=== PATIENT | female | born 1935 | race Caucasian/White ===

== ENCOUNTER 2017-07-29 08:31 | Outpatient (CLI) | payer MEDICARE | END 2017-07-29 08:32 | disposition home or self-care (01) | LOC: BICMAMMO 08:31 | PROVIDERS: ATTEND Family Medicine | DX: Z78.0 Asymptomatic menopausal state (principal) | CPT/HCPCS: 77080 ==

== ENCOUNTER 2017-08-19 13:02 | Outpatient (CLI) | payer MEDICARE ==
--- NOTE | 2017-08-19 13:57 | RAD ---
TWO VIEW CHEST: History: Dyspnea. Date: 08-19-17 Comparison: 08-05-16 FINDINGS: Two views of the chest demonstrates calcification over the aorta. The lungs are well aerated. No evid ence of active intrathoracic disease seen. No evidence of effusions, pneumonia, or pneumothorax is se en. IMPRESSION: Normal two views chest. POS: [facility]
== END 2017-08-19 13:03 | disposition home or self-care (01) ==
LOC: RAD 13:02
PROVIDERS: ATTEND Internal Medicine Pulmonary Disease
DX: R06.00 Dyspnea, unspecified (principal)
CPT/HCPCS: 71046

== ENCOUNTER 2017-08-22 10:37 | Emergency (ER) | payer MEDICARE ==
--- NOTE | 2017-08-22 11:41 | RAD ---
LEFT KNEE FOUR VIEWS: HISTORY: Fall five days ago with left knee pain. COMPARISON: None. FINDINGS: Four views of the left knee show no evidence of acute fracture or dislocation. No knee effusion is s een. The patient is status post left knee arthroplasty without perihardware lucency. IMPRESSION: Status post left knee arthroplasty without acute osseous abnormality. POS: [facility]
--- NOTE | 2017-08-22 11:44 | RAD ---
RIGHT KNEE FOUR VIEWS: HISTORY: Fall five days ago with right knee pain. FINDINGS: Four views of the right knee show moderate tricompartmental joint space narrowing and osteophyte form ation, consistent with osteoarthritis. No fracture or dislocation is seen. No knee effusion is seen . IMPRESSION: Moderate right knee osteoarthritis without acute osseous abnormality. POS: [facility]
--- NOTE | 2017-08-22 11:47 | ULT ---
LEFT LOWER EXTREMITY VENOUS ULTRASOUND: History Left leg edema and bruising after a fall on Friday. TECHNIQUE: Multiplanar, ashby scale, and color Doppler images were obtained in a left lower extremity venous ultr asound. Spectral analysis of the Doppler waveforms was performed. FINDINGS: The left common femoral vein, profunda femoral vein, superficial femoral vein, and popliteal vein are normal in appearance without visible thrombus. These vessels demonstrate normal compression, flow, and augmentation. The posterior tibial vein and greater saphenous vein are also patent. IMPRESSION: No evidence of deep vein thrombosis. POS: [facility]
== END 2017-08-22 11:30 | disposition home or self-care (01) ==
LOC: SCSER 10:37
DX: S80.02XA Contusion of left knee, initial encounter (principal); M25.461 Effusion, right knee; I10 Essential (primary) hypertension; I48.91 Unspecified atrial fibrillation; M47.896 Other spondylosis, lumbar region; M19.90 Unspecified osteoarthritis, unspecified site; Z85.038 Personal history of other malignant neoplasm of large intestine; Z79.899 Other long term (current) drug therapy; W19.XXXA Unspecified fall, initial encounter

== ENCOUNTER 2019-03-03 10:12 | Outpatient (CLI) | payer MEDICARE ==
--- NOTE | 2019-03-03 10:31 | RAD ---
Exam: XR Hip Lt 2-3 View HISTORY: Left hip pain for one month. COMPARISON: 11/30/2013 FINDINGS: Again noted is left hip osteoarthritis, but there has been interval increase in joint space narrowing with severe joint space narrowing involving the superolateral aspect of the left hip joint. Subchondral sclerosis and subchondral cystic changes are seen. Prominent osteophytes are identified. No fracture or dislocation is seen involving the left hip. Phleboliths overlie the pelvis. Surgical clips overlie the left iliac bone also present on prior exam. IMPRESSION: Progression in degree of left hip osteoarthritis. There is now severe joint space narrowing involving the left hip with prominent subchondral cystic changes and subchondral sclerosis.
== END 2019-03-03 10:13 | disposition home or self-care (01) ==
LOC: SCSRAD 10:12
PROVIDERS: ATTEND Family Medicine
DX: M25.552 Pain in left hip (principal); M16.12 Unilateral primary osteoarthritis, left hip; M25.852 Other specified joint disorders, left hip

== ENCOUNTER 2019-06-24 13:00 | Inpatient (IN) | payer MEDICARE, OTHER ==
--- NOTE | 2019-10-21 12:50 | HP ---
HISTORY OF PRESENT ILLNESS: The patient is an 84-year-old female with a 6- to 12-month history of progressive problems with her left hip without injury. She has had progressive pain by rest, restriction of activities, use of a walker, and Medrol-Dosepak. The pain is now interfering with day-to-day activities including walking, getting dressed, and sleeping. PAST MEDICAL HISTORY: The patient has history of hypertension, atherosclerotic cardiovascular disease, and paroxysmal atrial fibrillation on Xarelto, she stopped this 3 days prior to surgery. She has been seen and cleared for surgery by Dr. Hicks. CURRENT MEDICATIONS: Include; 1. Multaq. 2. Caltrate. 3. Imdur. 4. Low-dose aspirin. 5. Xarelto, which she has stopped 3 days prior to surgery. 6. Benazepril. 7. Tylenol. 8. Carvedilol. 9. Lasix. 10. Flonase. 11. Synthroid. 12. Potassium. 13. Gabapentin. 14. Simvastatin. ALLERGIES: SHE IS ALLERGIC TO CODEINE, WHICH CAUSES ITCHING. SHE IS ALLERGIC TO STADOL, AMLODIPINE, AND HYDROCHLOROTHIAZIDE. FAMILY HISTORY: Significant that she lives with her , but he has multiple medical problems and will be unable to help take care of her in the immediate postoperative period. She does not have other family members available. She also has significant degenerative arthritis in her right knee, which will limit her postoperative mobility. Otherwise unremarkable. SOCIAL HISTORY: Otherwise unremarkable. REVIEW OF SYSTEMS: Otherwise unremarkable. PHYSICAL EXAMINATION: GENERAL: An elderly heavyset female. She is alert and oriented. HEENT: Unremarkable. NECK: Supple. CHEST: Clear. HEART: Regular rate and rhythm. ABDOMEN: Soft, nontender. PELVIC/RECTAL/BREAST: Deferred. EXTREMITIES: Pertinent findings in the left hip. Her leg lengths were equal. There is tenderness in the anterior hip. There is an antalgic gait. There is decreased range of motion and groin pain with internal rotation. Neurovascular exam appears to be intact. There is good capillary refill. Could not palpate pulses. DIAGNOSTIC STUDIES: X-rays of her left hip reveal severe DJD with minimal joint space remaining with definite progression from previous x-rays. X-rays of her knee reveal left total knee replacement in good position and severe tricompartmental DJD of the right knee. IMPRESSION: 1. Degenerative arthritis, left hip. 2. Degenerative arthritis, right knee. 3. Paroxysmal atrial fibrillation. 4. Hypertension. 5. Atherosclerotic cardiovascular disease. 6. Lack of family support. PLAN: Left total hip replacement. The nature of the surgery, length of recovery, and potential complications such as infection, loss of motion, incomplete relief, neurovascular injury, thromboembolic phenomena, leg-length discrepancy, possible transfusion, need for revision have been discussed in detail. She may need a longer than usual hospitalization because her has multiple medical problems and is unable to care for her after surgery. She may require post-acute placement if she is not able to go home. Job ID: [id number]
[2019-10-21 14:16] LABS: INR-International Normal Ratio 2.3; Prothrombin Time 24.8 sec (12.0-14.7)
[2019-10-21 14:20] LABS: Anion Gap 14 mmol/L (10-20); BUN (Urea Nitrogen) 14 mg/dL (9.8-20.1); Calc. Creatinine Clearance 0 mL/min (70-130); Calcium 10.4 mg/dL (7.8-10.44); Carbon Dioxide 28 mmol/L (23-31); Chloride 106 mmol/L (98-107); Estimated GFR-MDRD 45; Glucose 98 mg/dL (83-110); Potassium 4.5 mmol/L (3.5-5.1); Sodium 143 mmol/L (136-145)
[2019-10-21 14:27] LABS: Bacteria/HPF 1+ HPF (None Seen); Bilirubin Negative (Negative); Blood, Urine Negative (Negative); Clarity Clear (Clear); Glucose, Urine (Dipstick) Normal (Negative); Ketone, Urine Negative (Negative); Leukocyte 25 Leu/uL (Negative); Nitrite Negative (Negative); Protein, Urine (Dipstick) Negative (Neg-Trace); RBC/HPF None Seen HPF (0-3); Specific Gravity, Urine 1.008 (1.002-1.036); Squamous Epithelial 0-3 HPF (0-3); Urobilinogen Normal mg/dL (Less than 2)
[2019-10-21 14:39] LABS: #Eosinphils 0.1 thou/uL (0.0-0.7); #Lymphocytes 1.7 thou/uL (1.20-3.40); #Monocytes 0.6 thou/uL (0.11-0.59); #Neutrophils 3.8 thou/uL (1.40-6.50); %Basophils 0.3 % (0.0-1.0); %Eosinophils 1.6 % (0.0-10.0); %Lymphocytes 26.7 % (21.0-51.0); %Monocytes 9.4 % (0.0-10.0); Hemoglobin 10.4 g/dL (12.0-16.0); Hypochromia SLIGHT = 6-15 cells (100X) (0-5/hpf); MDiff Complete? YES; Mean Corpuscular HGB CONC 30.3 g/dL (32.0-36.0); Mean Corpuscular Hemoglobin 21.1 pg (27.0-31.0); Mean Corpuscular Volume 69.7 fL (78.0-98.0); Mean Platelet Volume 10.5 fL (7.4-10.4); Microcytosis MODERATE=15-30 cells (100X) (0-5/hpf); Ovalocytes SLIGHT = 2-5 cells (100X) (0-1/hpf); Platelet Count 284 thou/uL (130-400); Platelet Morphology Comment Appears Adequate; Polychromasia SLIGHT = 2-3 cells (100X) (0-2/hpf); RBC Distribution Width 15.7 % (11.5-14.5); Target Cells SLIGHT = 2-5 cells (100X) (0-1/hpf); White Blood Cell (WBC) Count 6.2 thou/uL (4.8-10.8)
[2019-10-22 12:46] LABS: SARS-CoV-2 MS2 Positive; SARS-CoV-2 N Gene Negative; SARS-CoV-2 S Gene Negative; SARS-CoV-2 by NAA Not Detected (NotDetected); SARS-CoV-2 orf1ab Negative
[2019-10-25] MEDS ORDERED: Vancomycin 1.5 GRAM/300 ML BAG ONE (07:51)
[2019-10-25] MEDS ORDERED: Sodium Chloride 0.9% 100 ML ONE (07:51)
[2019-10-25] MEDS ORDERED: Tranexamic Acid 1,000 MG/10 ML VIAL ONE ×2 (07:51→11:49)
[2019-10-25] MEDS ORDERED: Fentanyl 100 MCG/2 ML VIAL ONE ×3 (08:15→11:59)
[2019-10-25] MEDS ORDERED: Midazolam HCl 2 mg/2 ml Vial ONE (08:15)
[2019-10-25] MEDS ORDERED: hydrALAZINE 20 MG/ML VIAL ONE (10:32)
[2019-10-25] MEDS ORDERED: Tranexamic Acid 1,000 MG in Sodium Chloride 0.9% 100 ML IVPB SCH ×2 (11:45→13:35)
[2019-10-25] MEDS ORDERED: Ondansetron HCl/PF 4 MG/2 ML Vial IVP PRN (11:59)
[2019-10-25] MEDS ORDERED: Promethazine HCl 25 MG/ML VIAL IM/IV PRN (11:59)
[2019-10-25] MEDS ORDERED: Non-Formulary Medication 1 EACH PO PRN (11:59)
[2019-10-25] MEDS ORDERED: Hydrocerin (Eucerin) Cream 120 gm Jar TOP PRN (12:15)
[2019-10-25] MEDS ORDERED: Naloxone HCl 0.4 mg/ml Vial IVP PRN (12:15)
[2019-10-25] MEDS ORDERED: Ondansetron PF 4 MG/2 ML Vial IVP PRN ×2 (12:15→13:35)
[2019-10-25] MEDS ORDERED: traMADol HCl 50 MG TAB PO PRN ×2 (12:15→13:35)
[2019-10-25] MEDS ORDERED: Bupivacaine 0.25% 10 ML VIAL EPIDURAL PRN (12:15)
[2019-10-25] MEDS ORDERED: Zolpidem Tartrate 5 MG TAB PO PRN ×2 (12:15→13:35)
[2019-10-25] MEDS ORDERED: diphenhydrAMINE 50 MG/ML VIAL IVP PRN (12:15)
[2019-10-25] MEDS ORDERED: Promethazine HCl 25 MG/ML VIAL IM PRN (12:15)
[2019-10-25] MEDS ORDERED: Promethazine HCl 25 MG SUPP PR PRN (12:15)
[2019-10-25] MEDS ORDERED: HYDROcodone/Acetaminophen 5/325 mg Tablet PO PRN (12:15)
[2019-10-25] MEDS ORDERED: Naloxone HCl 0.4 mg/ml Vial IV PRN (12:15)
[2019-10-25] MEDS ORDERED: diphenhydrAMINE 50 MG/ML VIAL IM PRN (12:15)
--- NOTE | 2019-10-25 12:29 | RAD ---
Left hip 2 views intraoperative fluoroscopy HISTORY: Arthritis. FINDINGS: Metallic hip prosthesis is in place without apparent hardware lucency. Alignment is anatomi c. Metallic anchors overlie the greater trochanter. Soft tissue gas from recent surgery. IMPRESSION : Left hip prosthesis is in good radiographic position.
[2019-10-25] MEDS ORDERED: Rocuronium Bromide 10 MG/ML (10ML VIAL) ONE (12:55)
[2019-10-25] MEDS ORDERED: Ketorolac Tromethamine 30 MG/ML VIAL ONE (12:55)
[2019-10-25] MEDS ORDERED: PHENYLEPHRINE-NS 100 MCG/ML 10 ML SYRINGE ONE (12:55)
[2019-10-25] MEDS ORDERED: Glycopyrrolate 0.2 MG/ML 5 ML SYRINGE ONE ×2 (12:55)
[2019-10-25] MEDS ORDERED: PROPOFOL 200 MG/20 ML VIAL ONE (12:55)
[2019-10-25] MEDS ORDERED: Ondansetron PF 4 MG/2 ML Vial ONE (12:55)
[2019-10-25] MEDS ORDERED: Dexamethasone 20 MG/5 ML VIAL ONE (12:55)
[2019-10-25] MEDS ORDERED: EPHEDRINE 25 MG/5 ML SYRINGE ONE (12:55)
[2019-10-25] MEDS ORDERED: Lidocaine 1.5% w/Epi 1:200K 30 ML VIAL (Epid Use) ONE (12:55)
[2019-10-25] MEDS ORDERED: Promethazine HCl 25 MG/ML VIAL SLOW IVP PRN (13:35)
[2019-10-25] MEDS ORDERED: Acetaminophen 325 MG TAB PO PRN (13:35)
[2019-10-25] MEDS ORDERED: diphenhydrAMINE 25 MG CAP PO PRN (13:35)
[2019-10-25] MEDS ORDERED: Fentanyl 100 MCG/2 ML VIAL SLOW IVP PRN ×2 (13:35)
[2019-10-25] MEDS ORDERED: Calcium Carbonate 600 MG + Vit D TAB PO SCH (14:15)
[2019-10-25] MEDS ORDERED: Carvedilol 3.125 MG TAB PO SCH (14:15)
[2019-10-25] MEDS ORDERED: Aspirin Chewable 81 MG TAB PO SCH (14:15)
[2019-10-25] MEDS ORDERED: Lisinopril 20 MG TAB PO SCH (14:30)
[2019-10-25] MEDS ORDERED: Potassium Chloride 20 MEQ TAB PO SCH (14:30)
[2019-10-25] MEDS ORDERED: Furosemide 20 MG TAB PO SCH (14:30)
[2019-10-25] MEDS ORDERED: Hydrochlorothiazide 25 MG TAB PO SCH (14:30)
--- NOTE | 2019-10-25 15:28 | OP ---
DATE OF PROCEDURE: 10/25/2019 CHILDREN'S AUTHOR: LIYAH Kinsey. ANESTHESIA: General plus epidural. PREOPERATIVE DIAGNOSIS: Degenerative arthritis, left hip. POSTOPERATIVE DIAGNOSIS: Degenerative arthritis, left hip. PROCEDURE PERFORMED: Left total hip replacement with uncemented [place] Trident II Tritanium acetabular component 52 mm with X3 polyethylene insert and uncemented [place] Accolade II femoral component size #4, 132-degree neck angle with standard neck length 36 mm metal head. OPERATIVE FINDINGS: There was marked degenerative arthritis of the hip. There was also chronic degenerative tearing of the abductors with virtually so-called bald greater trochanter. DESCRIPTION OF PROCEDURE: After satisfactory anesthesia was induced in supine position, sequential compression device was placed on the nonoperative leg throughout the procedure. The patient was then placed in the lateral decubitus position and this position held with hip positioning device. The patient's left leg and hip were then prepped and draped in routine sterile fashion. Hip was approached through a lateral curvilinear incision centered over the greater trochanter, carried down to subcutaneous tissues and bleeding points were controlled with Bovie cautery. IT band and gluteal fascia were split inline with a skin incision. As mentioned, most of the abductors were pulled off and I completed this and approached the hip through an anterolateral incision detaching the remainder of the abductors, removing the anterior abductors, reflecting this as a single flap anteriorly and medially along with the vastus lateralis. Anterior capsulectomy was performed and the hip dislocated anteriorly. Femoral neck was osteotomized with an oscillating saw using a trial prosthesis as a guide. The acetabulum was exposed and cleaned of all soft tissue and debris and then reamed down to bleeding subchondral bone to a total of 52 mm. It was felt that a Trident II Tritanium outer shell could be placed in a press-fit fashion. The permanent 52 mm outer shell was then hammered in position. There was good fit and stability of the component. The permanent X3 polyethylene insert was then snapped into place and the proximal femur exposed. It was opened with the box osteotome and then rasped in sequence to accept a #4 Accolade II femoral rasp. Trial reduction with 132-degree neck angle trunnion and a standard neck length 36 mm head gave appropriate size, fit, and stability. The hip was again dislocated. The trial components were removed. The wound was copiously irrigated. The permanent #4 Accolade II femoral stem was then hammered in position. There was again good fit and stability of the component. The permanent standard neck length 36 mm metal head was then placed on the trunnion and the hip reduced and found to be stable. The wound was again copiously irrigated. The abductors were repaired with a combination of interrupted #2 Vicryl and two suture anchors placed in the greater trochanter, each double-armed with heavy FiberWire suture. This was further reinforced with some #2 Vicryl, appeared to be acceptable repair. The IT band and gluteal fascia were closed with interrupted #2 Vicryl and running #2 Quill. Subcutaneous tissues were closed with a running 0 Quill suture. The skin closed with running subcuticular 3-0 Monoderm and SurgiSeal skin adhesive. Sterile dressing was applied. The patient turned to supine position and a pillow placed between her legs. Sequential compression device was applied on the operated leg and she was awakened and taken to recovery room in stable condition. There were no apparent intraoperative complications. The estimated blood loss was 400 mL. Job ID: [id number]
[2019-10-25] MEDS: Sodium Chloride 0.9% 1,000 ML IV SCH ×2 (15:40→15:53)
[2019-10-25] MEDS: CEFAZOLIN 2 GM in Premix Bag 1 BAG IVPB SCH ×2 (15:53→23:58)
[2019-10-25] MEDS: Dronedarone HCl 400 MG TAB PO SCH (17:38)
--- NOTE | 2019-10-25 18:34 | CON ---
DATE OF CONSULTATION: PRIMARY CARE PHYSICIAN: Triston Hopkins MD CHIEF COMPLAINT: Schedule left hip replacement. HISTORY OF PRESENT ILLNESS: The patient is an 84-year-old female with a past medical history for coronary artery disease; paroxysmal atrial fibrillation, on Xarelto; hypertension; GERD; and hyperlipidemia, who presents to the hospital for scheduled left hip replacement with Dr. Hopkins. Upon examination, the patient denies any recent fever or chills. She denies any chest pain or heart palpitations. She denies any shortness of breath or cough. Denies any abdominal pain, nausea, vomiting, or diarrhea. She denies any dysuria or urinary frequency. Upon reviewing preop labs, the patient's chem panel was within normal limits and unremarkable. Her CBC shows her to be mildly anemic. Her coags show an INR of 2.3. She has been off her Xarelto 3 days preop. Her UA has leukocyte esterase and bacteria 1+, however, the patient is asymptomatic. The patient was COVID-19 negative. PAST MEDICAL HISTORY: 1. CAD. 2. Hypertension. 3. Paroxysmal atrial fibrillation. 4. GERD. 5. Hyperlipidemia. PAST SURGICAL HISTORY: Left hip replacement. SOCIAL HISTORY: The patient lives at home with family. No history of smoking, illicit drug use, or alcohol intake. FAMILY HISTORY: Noncontributory to this case. REVIEW OF SYSTEMS: All review of systems are negative unless otherwise stated in HPI. PHYSICAL EXAMINATION: VITAL SIGNS: The patient was afebrile. Temperature 98.2, blood pressure 134/77 , heart rate 62, respirations 18, saturations 97% on room air. Pain 3/10, controlled. CONSTITUTIONAL: The patient is alert and oriented to person, place, and time. Appears comfortable, lying in bed. Epidural is in place. HEAD: Atraumatic and normocephalic. EYES: PERRLA. Extraocular muscles intact. ENT: Nares patent bilaterally. Oropharynx is clear. Uvula midline. Moist mucous membranes. No oral lesions. NECK: Full range of motion. No cervical spinous tenderness. No JVD. No cervical adenopathy. RESPIRATORY/CHEST: Respirations even and nonlabored. Clear to auscultation. CARDIOVASCULAR: S1 and S2 appreciated. No murmurs, rubs, or gallops. Regular rate and rhythm. ABDOMEN: Soft, nontender. Hypoactive bowel sounds. No guarding. No rigidity. No rebound. BACK: Full range of motion. No central spinous tenderness. No CVA tenderness. EXTREMITIES: Upper extremities; full range of motion. Normal strength. Sensation intact. Palpable radial pulses. Postop left hip surgery, currently immobilized at this time. Right lower extremity is normal. Normal strength. Sensation intact. Full range of motion. Palpable pedal pulses. No swelling. NEUROLOGIC: The patient is alert and oriented to person, place, and time. Able to follow commands. No new focal deficits. PSYCHIATRIC: Normal affect. A and O x3. LABORATORY DATA AND DIAGNOSTICS: Preop labs; chemistry; sodium 143, potassium 4.5, chloride 106, carbon dioxide 28, BUN 14, creatinine 1.15, glucose 98, calcium 10.4. WBC 6.2, hemoglobin 10.4, hematocrit 34.1, platelets 284. PT 24.8, INR 2.3. UA , 25 leukocyte esterase, 1+ bacteria. COVID negative. IMPRESSION AND PLAN: 1. Hypertension, chronic, stable. We will hold the patient's diuretics for now and YARI inhibitor. We will start beta-oli. We will continue to monitor blood pressure. 2. Paroxysmal atrial fibrillation. The patient is currently in normal sinus rhythm. The patient was on Xarelto preop and held it for 3 days prior. Her INR is supratherapeutic at this time. We will continue to monitor. 3. Coronary artery disease. The patient is on Multaq and Imdur. We will continue those home medications at this time. 4. Acid reflux. We will start the patient on Protonix. 5. Hyperlipidemia. We will restart the patient's statin. 6. Aspirin and Lovenox for deep venous thrombosis prophylaxis per Dr. Hopkins. 7. Protonix for gastrointestinal prophylaxis. PT and OT therapy. Epidural and pain management per Anesthesia. The patient is a full code. 8. Discussed the case with Dr. Tavera. Job ID: [id number] MTDD
[2019-10-25 20:07] VITALS: BMI 39.4
[2019-10-25] MEDS ORDERED: Vancomycin 1.5 GRAM/300 ML BAG 1.5 GM in Premix Bag 1 BAG IVPB SCH (21:00)
[2019-10-25] MEDS: Atorvastatin Calcium 20 MG TAB PO SCH (21:33)
[2019-10-25] MEDS: Carvedilol 3.125 MG TAB PO SCH (21:33)
[2019-10-25] MEDS: Gabapentin 300 MG CAP PO SCH (21:33)
[2019-10-26] MEDS: fentaNYL Citrate/PF 500 MCG, Bupivacaine 10 ML in Sodium Chloride 0.9% 80 ML EPIDURAL SCH ×2 (04:16→20:51)
[2019-10-26 06:00] LABS: Hemoglobin 6.8 g/dL (12.0-16.0); Mean Corpuscular Hemoglobin 20.5 pg (27.0-31.0); Mean Corpuscular Volume 70.6 fL (78.0-98.0); Mean Platelet Volume 10.9 fL (7.4-10.4); Platelet Count 180 thou/uL (130-400); RBC Distribution Width 15.4 % (11.5-14.5); Red Blood Cell (RBC) Count 3.31 mill/uL (4.20-5.40); White Blood Cell (WBC) Count 9.4 thou/uL (4.8-10.8)
[2019-10-26] MEDS: diphenhydrAMINE 25 MG CAP PO PRN ×2 (06:08→10:03)
[2019-10-26 06:15] LABS: Anion Gap 9 mmol/L (10-20); BUN (Urea Nitrogen) 12 mg/dL (9.8-20.1); Calc. Creatinine Clearance 71 mL/min (70-130); Calcium 8.6 mg/dL (7.8-10.44); Carbon Dioxide 24 mmol/L (23-31); Chloride 108 mmol/L (98-107); Estimated GFR-MDRD 55; Glucose 114 mg/dL (83-110); Potassium 4.4 mmol/L (3.5-5.1); Sodium 137 mmol/L (136-145)
[2019-10-26] MEDS: Dronedarone HCl 400 MG TAB PO SCH ×2 (07:53→17:40)
[2019-10-26] MEDS: Calcium Carbonate 600 MG + Vit D TAB PO SCH (07:54)
[2019-10-26] MEDS: Potassium Chloride 20 MEQ TAB PO SCH (07:55)
[2019-10-26] MEDS: Ferrous Gluconate 324 MG TAB PO SCH ×2 (07:56→17:40)
[2019-10-26] MEDS: Senokot S 8.6-50 MG TAB PO SCH ×2 (07:56→20:55)
[2019-10-26] MEDS: Aspirin Chewable 81 MG TAB PO SCH (07:56)
[2019-10-26] MEDS: Carvedilol 3.125 MG TAB PO SCH ×2 (07:57→20:54)
[2019-10-26] MEDS: Multivitamin W/ Minerals 1 TAB PO SCH (07:57)
[2019-10-26] MEDS ORDERED: Hydrochlorothiazide 25 MG TAB PO SCH (09:00)
[2019-10-26] MEDS ORDERED: Enoxaparin Sodium 40 MG/0.4 ML SYRINGE SC SCH (09:00)
[2019-10-26] MEDS ORDERED: Furosemide 20 MG TAB PO SCH (09:00)
[2019-10-26] MEDS ORDERED: Lisinopril 20 MG TAB PO SCH (09:00)
[2019-10-26] MEDS: Sodium Chloride 0.9% 1,000 ML IV SCH ×2 (10:05→19:57)
--- NOTE | 2019-10-26 11:56 | PDOC.HOSPP ---
- Subjective Encounter Date: 10/26/19 Encounter Time: 15:00 Subjective: Patient is an 84-year-old female post-op day 1 for left total hip replacement, examined for medical management. No overnight complications. Patient received 2 units of PRBC this morning. - Objective Vital Signs & Weight: Vital Signs (12 hours) Temp Pulse Resp BP Pulse Ox 10/26/19 08:20 98.4 F 71 14 133/55 L 93 L 10/26/19 03:47 99.6 F 74 16 114/63 97 Weight Weight 223 lb I&O: 10/25/19 10/26/19 10/27/19 06:59 06:59 06:59 Intake Total 3090 Output Total 1150 Balance 1940 Result Diagrams: 10/26/19 13:29 10/26/19 05:31 EKG Reviewed by me: Yes (SR) Hospitalist ROS - Review of Systems Constitutional: denies: fever, chills, sweats, weakness, malaise, other Eyes: denies: pain, vision change, conjunctivae inflammation, eyelid inflammation, redness, other ENT: denies: ear pain, ear discharge, nose pain, nose discharge, nose congestion , mouth pain, mouth swelling, throat pain, throat swelling, other Respiratory: denies: cough, dry, shortness of breath, hemoptysis, SOB with excertion, pleuritic pain, sputum, wheezing, other Cardiovascular: denies: chest pain, palpitations, orthopnea, paroxysmal noc. dyspnea, edema, light headedness, other Gastrointestinal: denies: nausea, vomiting, abdominal pain, diarrhea, constipation, melena, hematochezia, other Genitourinary: denies: dysuria, frequency, incontinence, hematuria, retention, other Musculoskeletal: denies: neck pain, shoulder pain, arm pain, back pain, hand pain, leg pain, foot pain, other Skin: denies: rash, lesions, sandeep, bruising, other Neurological: denies: weakness, numbness, incoordination, change in speech, confusion, seizures, other All other systems reviewed; all pertinent +/- noted in HPI/Subj - Medication Medications: Active Medications Generic Name Dose Route Start Last Admin Trade Name Freq PRN Reason Stop Dose Admin Aspirin 81 mg 10/26/19 09:00 10/26/19 07:56 Aspirin Chewable PO 81 mg DAILY RONAK Administration Atorvastatin Calcium 20 mg 10/25/19 21:00 10/25/19 21:33 Lipitor PO 20 mg HS RONAK Administration Calcium/Vitamin D 1 tab 10/26/19 09:00 10/26/19 07:54 Caltrate 600 + Vit D PO 1 tab DAILY RONAK Administration Carvedilol 3.125 mg 10/25/19 21:00 10/26/19 07:57 Coreg PO 3.125 mg BID RONAK Administration Diphenhydramine HCl 25 mg 10/25/19 12:15 10/26/19 10:03 Benadryl PO 25 mg Q3H PRN Administration Itching Dronedarone 400 mg 10/25/19 17:00 10/26/19 07:53 Multaq PO 400 mg BID-WM RONAK Administration Ferrous Gluconate 324 mg 10/26/19 08:00 10/26/19 07:56 Fergon PO 324 mg BID-WM RONAK Administration Gabapentin 300 mg 10/25/19 21:00 10/25/19 21:33 Neurontin PO 300 mg HS RONAK Administration Fentanyl Citrate 500 mcg/ 100 mls @ 0 mls/hr 10/25/19 12:15 10/26/19 04:16 Bupivacaine HCl 10 ml/ Sodium EPIDURAL 100 mls Chloride INF RONAK Administration As Directed Sodium Chloride 1,000 mls @ 100 mls/hr 10/25/19 13:35 10/26/19 10:05 Normal Saline 0.9% IV Not Given .Q10H RONAK Iron/Minerals/Multivitamins 1 tab 10/26/19 09:00 10/26/19 07:57 Theragran M PO 1 tab DAILY RONAK Administration Isosorbide Mononitrate 60 mg 10/26/19 09:00 10/26/19 07:56 Imdur PO 60 mg QAM RONAK Administration Pantoprazole Sodium 40 mg 10/26/19 09:00 10/26/19 07:57 Protonix PO 40 mg DAILY RONAK Administration Potassium Chloride 20 meq 10/26/19 08:00 10/26/19 07:55 K-Dur PO 20 meq QAM-WM RONAK Administration Senna/Docusate Sodium 2 tab 10/26/19 09:00 10/26/19 07:56 Senokot S PO 2 tab BID RONAK Administration Tramadol HCl 50 mg 10/25/19 12:15 10/26/19 06:08 Ultram PO 50 mg Q6H PRN Administration Mild Pain 1-3 - Exam General Appearance: awake alert Neck: supple, symmetric, no JVD, no carotid bruit Heart: RRR, no murmur, no gallops, no rubs, normal peripheral pulses Respiratory: CTAB, no wheezes, no rales, no ronchi, no tachypnea Gastrointestinal: soft, non-tender, non-distended, normal bowel sounds, no palpable masses, no hepatomegaly, no splenomegaly Extremities: no cyanosis, no clubbing, no edema Skin: normal turgor, no lesions Neurological: no new deficit Psychiatric: normal affect, normal behavior, A&O x 3 Hosp A/P - Plan DVT proph w/SCDs Par Afib Hypomagnesemia Obesity BMI 39.5 HTN CAD HLD GERD CKD 3 PLAN: Cont dronedarone Replace magnesium Cont carvedilol Monitor HH Cont IV fluids Cont PT/OT
[2019-10-26 13:53] LABS: Hemoglobin 7.9 g/dL (12.0-16.0)
[2019-10-26] MEDS: traMADol HCl 50 MG TAB PO PRN (13:58)
[2019-10-26] MEDS ORDERED: Magnesium 2 GM/50 ML 2 GM in Premix Bag 1 BAG IVPB SCH (14:00)
[2019-10-26] MEDS: Atorvastatin Calcium 20 MG TAB PO SCH (20:54)
[2019-10-26] MEDS: Gabapentin 300 MG CAP PO SCH (20:54)
[2019-10-27 05:48] LABS: Hemoglobin 8.6 g/dL (12.0-16.0); Mean Corpuscular HGB CONC 31.1 g/dL (32.0-36.0); Mean Corpuscular Hemoglobin 23.1 pg (27.0-31.0); Mean Corpuscular Volume 74.2 fL (78.0-98.0); Mean Platelet Volume 10.7 fL (7.4-10.4); Platelet Count 159 thou/uL (130-400); Red Blood Cell (RBC) Count 3.72 mill/uL (4.20-5.40); White Blood Cell (WBC) Count 11.4 thou/uL (4.8-10.8)
[2019-10-27] MEDS: Sodium Chloride 0.9% 1,000 ML IV SCH ×2 (06:25→14:58)
[2019-10-27] MEDS: Potassium Chloride 20 MEQ TAB PO SCH (08:17)
[2019-10-27] MEDS: Multivitamin W/ Minerals 1 TAB PO SCH (08:17)
[2019-10-27] MEDS: Dronedarone HCl 400 MG TAB PO SCH ×2 (08:18→17:38)
[2019-10-27] MEDS: Ferrous Gluconate 324 MG TAB PO SCH ×2 (08:18→17:38)
[2019-10-27] MEDS: Carvedilol 3.125 MG TAB PO SCH ×2 (08:18→20:03)
[2019-10-27] MEDS: Aspirin Chewable 81 MG TAB PO SCH (08:18)
[2019-10-27] MEDS: Senokot S 8.6-50 MG TAB PO SCH ×2 (08:18→20:03)
[2019-10-27] MEDS: Calcium Carbonate 600 MG + Vit D TAB PO SCH (08:18)
--- NOTE | 2019-10-27 10:12 | PDOC.HOSPP ---
- Subjective Encounter Date: 10/27/19 Encounter Time: 11:30 Subjective: Patient seen and examined for med mngt. Pain controlled. No CP/SOB/N/V. No new complaints. No overnight events - Objective Vital Signs & Weight: Vital Signs (12 hours) Temp Pulse Resp BP Pulse Ox 10/27/19 08:11 98.9 F 83 18 132/70 98 10/27/19 03:09 100.1 F H 71 16 133/68 96 10/26/19 23:09 100.7 F H 75 16 129/70 95 Weight Admit Weight 223 lb Weight 223 lb I&O: 10/26/19 10/27/19 10/28/19 06:59 06:59 06:59 Intake Total 3090 2220 Output Total 1150 700 Balance 1940 1520 Result Diagrams: 10/27/19 05:22 10/26/19 05:31 Hospitalist ROS - Review of Systems Respiratory: denies: cough, dry, shortness of breath, hemoptysis, SOB with excertion, pleuritic pain, sputum, wheezing, other Cardiovascular: denies: chest pain, palpitations, orthopnea, paroxysmal noc. dyspnea, edema, light headedness, other - Medication Medications: Active Medications Generic Name Dose Route Start Last Admin Trade Name Freq PRN Reason Stop Dose Admin Aspirin 81 mg 10/26/19 09:00 10/27/19 08:18 Aspirin Chewable PO 81 mg DAILY RONAK Administration Atorvastatin Calcium 20 mg 10/25/19 21:00 10/26/19 20:54 Lipitor PO 20 mg HS RONAK Administration Calcium/Vitamin D 1 tab 10/26/19 09:00 10/27/19 08:18 Caltrate 600 + Vit D PO 1 tab DAILY RONAK Administration Carvedilol 3.125 mg 10/25/19 21:00 10/27/19 08:18 Coreg PO 3.125 mg BID RONAK Administration Diphenhydramine HCl 25 mg 10/25/19 12:15 10/26/19 10:03 Benadryl PO 25 mg Q3H PRN Administration Itching Dronedarone 400 mg 10/25/19 17:00 10/27/19 08:18 Multaq PO 400 mg BID-WM RONAK Administration Ferrous Gluconate 324 mg 10/26/19 08:00 10/27/19 08:18 Fergon PO 324 mg BID-WM RONAK Administration Gabapentin 300 mg 10/25/19 21:00 10/26/19 20:54 Neurontin PO 300 mg HS RONAK Administration Fentanyl Citrate 500 mcg/ 100 mls @ 0 mls/hr 10/25/19 12:15 10/26/19 20:51 Bupivacaine HCl 10 ml/ Sodium EPIDURAL 100 mls Chloride INF RONAK Administration As Directed Sodium Chloride 1,000 mls @ 100 mls/hr 10/25/19 13:35 10/27/19 06:25 Normal Saline 0.9% IV Not Given .Q10H RONAK Iron/Minerals/Multivitamins 1 tab 10/26/19 09:00 10/27/19 08:17 Theragran M PO 1 tab DAILY RONAK Administration Isosorbide Mononitrate 60 mg 10/26/19 09:00 10/27/19 08:18 Imdur PO 60 mg QAM RONAK Administration Pantoprazole Sodium 40 mg 10/26/19 09:00 10/27/19 08:17 Protonix PO 40 mg DAILY RONAK Administration Potassium Chloride 20 meq 10/26/19 08:00 10/27/19 08:17 K-Dur PO 20 meq QAM-WM RONAK Administration Senna/Docusate Sodium 2 tab 10/26/19 09:00 10/27/19 08:18 Senokot S PO 2 tab BID RONAK Administration Tramadol HCl 50 mg 10/25/19 12:15 10/26/19 06:08 Ultram PO 50 mg Q6H PRN Administration Mild Pain 1-3 Tramadol HCl 100 mg 10/25/19 12:15 10/26/19 13:58 Ultram PO 100 mg Q6H PRN Administration Moderate Pain 4-6 - Exam General Appearance: NAD Heart: RRR, no gallops Respiratory: no wheezes, no ronchi Gastrointestinal: non-tender, normal bowel sounds Extremities: no cyanosis, no clubbing Neurological: no new deficit Hosp A/P - Plan DVT proph w/SCDs Par Afib - in SR - on Multaq/Coreg - Anticoag on hold due to surgery Obesity BMI 39.5 HTN CAD HLD GERD CKD 3 Hypomagnesemia - replaced PLAN: Cont Dronedarone Cont Carvedilol Cont PT/OT Pain control Cont other meds as above DC planning
[2019-10-27] MEDS: traMADol HCl 50 MG TAB PO PRN (13:30)
[2019-10-27] MEDS: Rivaroxaban 10 MG TAB PO SCH (17:38)
[2019-10-27] MEDS: HYDROcodone/Acetaminophen 5/325 mg Tablet PO PRN (20:03)
[2019-10-27] MEDS: Gabapentin 300 MG CAP PO SCH (20:03)
[2019-10-27] MEDS: Atorvastatin Calcium 20 MG TAB PO SCH (20:03)
[2019-10-27] MEDS ORDERED: Acetaminophen 325 MG TAB PO SCH (22:30)
[2019-10-27 23:10] LABS: #Basophils 0.1 thou/uL (0.0-0.2); #Eosinphils 0.1 thou/uL (0.0-0.7); #Lymphocytes 1.2 thou/uL (1.20-3.40); #Monocytes 1.6 thou/uL (0.11-0.59); #Neutrophils 8.5 thou/uL (1.40-6.50); %Basophils 0.6 % (0.0-1.0); %Eosinophils 0.6 % (0.0-10.0); %Lymphocytes 10.1 % (21.0-51.0); %Neutrophils 74.8 % (42.0-75.0); Hemoglobin 8.5 g/dL (12.0-16.0); Mean Corpuscular HGB CONC 31.3 g/dL (32.0-36.0); Mean Corpuscular Hemoglobin 22.8 pg (27.0-31.0); Mean Platelet Volume 10.9 fL (7.4-10.4); Platelet Count 174 thou/uL (130-400); RBC Distribution Width 17.9 % (11.5-14.5); Red Blood Cell (RBC) Count 3.74 mill/uL (4.20-5.40); White Blood Cell (WBC) Count 11.4 thou/uL (4.8-10.8)
--- NOTE | 2019-10-27 23:15 | RAD ---
EXAM: CHEST ONE VIEW HISTORY: Fever COMPARISON: 01/05/2013 FINDINGS: Cardiac silhouette is magnified by projection but does appear mildly enlarged. Pulmonary vasculature is within normal limits. The lungs are clear. Degenerative changes are again seen in the spine. There is bilateral acromioclavicular joint osteoarthritis. Vascular calcifications are seen in the th oracic aorta. IMPRESSION: 1. No acute cardiopulmonary process. 2. Mild cardiomegaly.
[2019-10-27 23:18] LABS: Lactic Acid 0.7 mmol/L (0.5-2.2)
[2019-10-27 23:23] LABS: ALT (SGPT) Less than 7 U/L (8-55); AST (SGOT) 15 U/L (5-34); Albumin 2.9 g/dL (3.4-4.8); Alkaline Phosphatase 46 U/L (40-110); Anion Gap 8 mmol/L (10-20); BUN (Urea Nitrogen) 16 mg/dL (9.8-20.1); Bilirubin, Total 0.8 mg/dL (0.2-1.2); Calc. Creatinine Clearance 74 mL/min (70-130); Calcium 8.9 mg/dL (7.8-10.44); Carbon Dioxide 25 mmol/L (23-31); Chloride 103 mmol/L (98-107); Estimated GFR-MDRD 58; Globulin 2.3 g/dL (2.4-3.5); Glucose 107 mg/dL (83-110); Potassium 4.9 mmol/L (3.5-5.1); Protein, Total 5.2 g/dL (6.0-8.3); Sodium 131 mmol/L (136-145)
--- NOTE | 2019-10-27 23:58 | PDOC.EVN ---
Event Note - Event Note Event Note: Nurse called, febrile 101.4F, resistant to tylenol. other VSS. Give dose tylenol now. sepsis workup. ABX pending workup results.
[2019-10-28 00:31] LABS: Bacteria/HPF None Seen HPF (None Seen); Bilirubin Negative (Negative); Blood, Urine Negative (Negative); Clarity Clear (Clear); Glucose, Urine (Dipstick) Normal (Negative); Ketone, Urine Negative (Negative); Leukocyte Negative Leu/uL (Negative); Nitrite Negative (Negative); Protein, Urine (Dipstick) Negative (Neg-Trace); RBC/HPF 0-3 HPF (0-3); Specific Gravity, Urine 1.006 (1.002-1.036); Squamous Epithelial 0-3 HPF (0-3); Urobilinogen Normal mg/dL (Less than 2); WBC/HPF 0-3 HPF (0-3)
[2019-10-28] MEDS: Sodium Chloride 0.9% 1,000 ML IV SCH ×2 (00:44→12:53)
[2019-10-28 05:29] LABS: Hemoglobin 7.8 g/dL (12.0-16.0); Mean Corpuscular HGB CONC 30.6 g/dL (32.0-36.0); Mean Corpuscular Hemoglobin 22.5 pg (27.0-31.0); Mean Corpuscular Volume 73.5 fL (78.0-98.0); Mean Platelet Volume 10.9 fL (7.4-10.4); Platelet Count 151 thou/uL (130-400); RBC Distribution Width 17.7 % (11.5-14.5); Red Blood Cell (RBC) Count 3.46 mill/uL (4.20-5.40); White Blood Cell (WBC) Count 9.1 thou/uL (4.8-10.8)
[2019-10-28] MEDS ORDERED: Furosemide 20 MG/2 ML VIAL SLOW IVP SCH (08:30)
[2019-10-28] MEDS: Multivitamin W/ Minerals 1 TAB PO SCH (08:49)
[2019-10-28] MEDS: Potassium Chloride 20 MEQ TAB PO SCH (08:49)
[2019-10-28] MEDS: Carvedilol 3.125 MG TAB PO SCH ×2 (08:50→20:58)
[2019-10-28] MEDS: Ferrous Gluconate 324 MG TAB PO SCH ×2 (08:50→16:55)
[2019-10-28] MEDS: Aspirin Chewable 81 MG TAB PO SCH (08:50)
[2019-10-28] MEDS: Calcium Carbonate 600 MG + Vit D TAB PO SCH (08:50)
[2019-10-28] MEDS: Dronedarone HCl 400 MG TAB PO SCH ×2 (08:50→16:55)
[2019-10-28] MEDS: Senokot S 8.6-50 MG TAB PO SCH ×2 (08:50→20:57)
[2019-10-28] MEDS: traMADol HCl 50 MG TAB PO PRN ×2 (12:49→21:01)
[2019-10-28] MEDS: Acetaminophen 500 MG TAB PO PRN ×2 (12:50→21:05)
--- NOTE | 2019-10-28 15:00 | PQF ---
CLINICAL DOCUMENTATION CLARIFICATION FORM: Dear Obed Robles, NEHA Date: 10/28/2019 Please exercise your independent, professional judgment in responding to the clarification form. Clinical indicators are provided on the bottom of this form for your review Please check appropriate box(es): [ ] Acute blood loss anemia [ x] Post-op anemia related to acute blood loss [ ] Anemia: [ ] Nutritional [ ] Drug induced (specify) [ ] Chronic Anemia: [ ] Other [ ] Anemia of Chronic Disease (please specify ) [ ] Other diagnosis [ ] Unable to determine In addition, please specify: Present on Admission (POA): [ ] Yes [ x ] No [ ] Unable to determine For continuity of documentation, please document condition throughout progress notes and discharge summary. Thank You. To be completed by CDI/Coding staff for physician review: CLINICAL INDICATORS - SIGNS / SYMPTOMS / LABS / RESULTS AND LOCATION IN EMR 10/24 (Margaret) Hx of present illness: Her CBC shows her to be mildly anemic. Her coags show an INR of 2.3. LAB: Hgb 10.4 Hct 34.1 10/20 10/25 @0531 10/25 @1329 10/27 LABS: Hemoglobin 10.4 6.8 7.9 7.8 Hematocrit 34.1 23.4 25.2 25.5 RISK FACTORS / RESULTS AND LOCATION IN EMR H&P 10/20 (Sandeep) hx of HTN, PAF on Xarelto, she stopped this 3 days prior to surgery. Degenerative arthritis, left hip. Degenerative arthritis , r knee. Operative note 10/24: Left total hip replacement. TREATMENTS / RESULTS AND LOCATION IN EMR 10/25 (Ian) Subjective: Pt received 2 units of PRBC this morning. Thank you, Kaelyn Gonzalez RN, BSN [email or web address] This is a permanent part of the Medical Record [facility]
[2019-10-28] MEDS: Rivaroxaban 10 MG TAB PO SCH (16:55)
--- NOTE | 2019-10-28 17:47 | PDOC.HOSPP ---
- Subjective Encounter Date: 10/28/19 Encounter Time: 12:30 Subjective: Patient seen and examined for med mngt. No CP or SOB. Receiving PRBC. No new complaints. No overnight events - Objective Vital Signs & Weight: Vital Signs (12 hours) Temp Pulse Pulse Resp BP BP Pulse Ox 10/28/19 16:00 96 10/28/19 14:50 98.5 F 71 16 119/53 L 93 L 10/28/19 14:35 99.5 F 73 18 139/72 95 10/28/19 12:00 94 L 10/28/19 10:50 98.2 F 73 18 137/63 94 L 10/28/19 08:00 94 L 10/28/19 07:57 97.7 F 65 12 140/76 94 L Weight Admit Weight 223 lb Weight 223 lb I&O: 10/27/19 10/28/19 10/29/19 06:59 06:59 06:59 Intake Total 2220 1200 0 Output Total 700 1800 Balance 1520 -600 0 Result Diagrams: 10/28/19 05:11 10/27/19 22:50 Hospitalist ROS - Review of Systems Respiratory: denies: cough, dry, shortness of breath, hemoptysis, SOB with excertion, pleuritic pain, sputum, wheezing, other Cardiovascular: denies: chest pain, palpitations, orthopnea, paroxysmal noc. dyspnea, edema, light headedness, other - Medication Medications: Active Medications Generic Name Dose Route Start Last Admin Trade Name Freq PRN Reason Stop Dose Admin Acetaminophen 1,000 mg 10/25/19 12:10 10/28/19 12:50 Tylenol PO 1,000 mg Q6H PRN Administration Headache/Fever or Pain Hydrocodone Bitart/Acetaminophen 2 tab 10/25/19 12:15 10/27/19 20:03 [place] 5/325 PO 2 tab Q4H PRN Administration For Moderate Pain 4-6 Aspirin 81 mg 10/26/19 09:00 10/28/19 08:50 Aspirin Chewable PO 81 mg DAILY RONAK Administration Atorvastatin Calcium 20 mg 10/25/19 21:00 10/27/19 20:03 Lipitor PO 20 mg HS RONAK Administration Calcium/Vitamin D 1 tab 10/26/19 09:00 10/28/19 08:50 Caltrate 600 + Vit D PO 1 tab DAILY RONAK Administration Carvedilol 3.125 mg 10/25/19 21:00 10/28/19 08:50 Coreg PO 3.125 mg BID RONAK Administration Diphenhydramine HCl 25 mg 10/25/19 12:15 10/26/19 10:03 Benadryl PO 25 mg Q3H PRN Administration Itching Dronedarone 400 mg 10/25/19 17:00 10/28/19 16:55 Multaq PO 400 mg BID-WM RONAK Administration Ferrous Gluconate 324 mg 10/26/19 08:00 10/28/19 16:55 Fergon PO 324 mg BID-WM RONAK Administration Gabapentin 300 mg 10/25/19 21:00 10/27/19 20:03 Neurontin PO 300 mg HS RONAK Administration Sodium Chloride 1,000 mls @ 100 mls/hr 10/25/19 13:35 10/28/19 12:53 Normal Saline 0.9% IV Not Given .Q10H RONAK Iron/Minerals/Multivitamins 1 tab 10/26/19 09:00 10/28/19 08:49 Theragran M PO 1 tab DAILY RONAK Administration Isosorbide Mononitrate 60 mg 10/26/19 09:00 10/28/19 08:50 Imdur PO 60 mg QAM RONAK Administration Pantoprazole Sodium 40 mg 10/26/19 09:00 10/28/19 08:50 Protonix PO 40 mg DAILY RONAK Administration Potassium Chloride 20 meq 10/26/19 08:00 10/28/19 08:49 K-Dur PO 20 meq QAM-WM RONAK Administration Rivaroxaban 10 mg 10/27/19 17:00 10/28/19 16:55 Xarelto PO 10 mg 1700 RONAK Administration Senna/Docusate Sodium 2 tab 10/26/19 09:00 10/28/19 08:50 Senokot S PO 2 tab BID RONAK Administration Tramadol HCl 50 mg 10/25/19 12:15 10/26/19 06:08 Ultram PO 50 mg Q6H PRN Administration Mild Pain 1-3 Tramadol HCl 100 mg 10/25/19 12:15 10/28/19 12:49 Ultram PO 100 mg Q6H PRN Administration Moderate Pain 4-6 - Exam General Appearance: NAD Heart: RRR, no gallops Respiratory: no wheezes, no ronchi Gastrointestinal: soft, non-tender, normal bowel sounds Extremities: no cyanosis Neurological: no new deficit Hosp A/P - Plan DVT proph w/SCDs Par Afib - on Multaq/Coreg - Anticoag on hold Obesity BMI 39.5 HTN CAD HLD GERD CKD 3 Hypomagnesemia PLAN: Hold Potassium Cont Dronedarone/Carvedilol and other meds as above Cont PT/OT Pain control DC planning
[2019-10-28] MEDS: Gabapentin 300 MG CAP PO SCH (20:57)
[2019-10-28] MEDS: Atorvastatin Calcium 20 MG TAB PO SCH (20:57)
[2019-10-29 05:08] LABS: Hemoglobin 9.6 g/dL (12.0-16.0); Mean Corpuscular HGB CONC 31.8 g/dL (32.0-36.0); Mean Corpuscular Hemoglobin 24.6 pg (27.0-31.0); Mean Corpuscular Volume 77.3 fL (78.0-98.0); Mean Platelet Volume 10.6 fL (7.4-10.4); Platelet Count 177 thou/uL (130-400); RBC Distribution Width 18.4 % (11.5-14.5); Red Blood Cell (RBC) Count 3.89 mill/uL (4.20-5.40); White Blood Cell (WBC) Count 8.9 thou/uL (4.8-10.8)
[2019-10-29] MEDS: Acetaminophen 500 MG TAB PO PRN (06:39)
[2019-10-29] MEDS: traMADol HCl 50 MG TAB PO PRN (06:40)
[2019-10-29] MEDS: Ferrous Gluconate 324 MG TAB PO SCH ×2 (08:31→17:32)
[2019-10-29] MEDS: Dronedarone HCl 400 MG TAB PO SCH ×2 (08:31→17:32)
[2019-10-29] MEDS: Senokot S 8.6-50 MG TAB PO SCH ×2 (08:31→20:44)
[2019-10-29] MEDS: Multivitamin W/ Minerals 1 TAB PO SCH (08:32)
[2019-10-29] MEDS: Calcium Carbonate 600 MG + Vit D TAB PO SCH (08:32)
[2019-10-29] MEDS: Aspirin Chewable 81 MG TAB PO SCH (08:32)
[2019-10-29] MEDS: Carvedilol 3.125 MG TAB PO SCH ×2 (08:32→20:44)
[2019-10-29] MEDS ORDERED: Rivaroxaban 10 MG TAB PO SCH (12:02)
--- NOTE | 2019-10-29 17:13 | PDOC.HOSPP ---
- Subjective Encounter Date: 10/29/19 Encounter Time: 10:00 Subjective: Patient seen and examined for med mngt. . No CP/SOB or bleeding. Pain controlled. Rodriguez dced. No new complaints. No overnight events - Objective Vital Signs & Weight: Vital Signs (12 hours) Temp Pulse Resp BP Pulse Ox 10/29/19 16:12 98.1 F 71 16 181/74 H 94 L 10/29/19 11:00 97.9 F 66 16 156/76 H 95 10/29/19 08:00 94 L 10/29/19 07:40 98.1 F 66 14 149/80 H 94 L Weight Admit Weight 223 lb Weight 223 lb I&O: 10/28/19 10/29/19 10/30/19 06:59 06:59 06:59 Intake Total 1200 2790 Output Total 1800 Balance -600 2790 Result Diagrams: 10/29/19 04:44 10/27/19 22:50 Hospitalist ROS - Review of Systems Respiratory: denies: cough, dry, shortness of breath, hemoptysis, SOB with excertion, pleuritic pain, sputum, wheezing, other Cardiovascular: denies: chest pain, palpitations, orthopnea, paroxysmal noc. dyspnea, edema, light headedness, other - Medication Medications: Active Medications Generic Name Dose Route Start Last Admin Trade Name Freq PRN Reason Stop Dose Admin Acetaminophen 1,000 mg 10/25/19 12:10 10/29/19 06:39 Tylenol PO 1,000 mg Q6H PRN Administration Headache/Fever or Pain Hydrocodone Bitart/Acetaminophen 2 tab 10/25/19 12:15 10/27/19 20:03 [place] 5/325 PO 2 tab Q4H PRN Administration For Moderate Pain 4-6 Aspirin 81 mg 10/26/19 09:00 10/29/19 08:32 Aspirin Chewable PO 81 mg DAILY RONAK Administration Atorvastatin Calcium 20 mg 10/25/19 21:00 10/28/19 20:57 Lipitor PO 20 mg HS RONAK Administration Calcium/Vitamin D 1 tab 10/26/19 09:00 10/29/19 08:32 Caltrate 600 + Vit D PO 1 tab DAILY RONAK Administration Carvedilol 3.125 mg 10/25/19 21:00 10/29/19 08:32 Coreg PO 3.125 mg BID RONAK Administration Diphenhydramine HCl 25 mg 10/25/19 12:15 10/26/19 10:03 Benadryl PO 25 mg Q3H PRN Administration Itching Dronedarone 400 mg 10/25/19 17:00 10/29/19 08:31 Multaq PO 400 mg BID-WM RONAK Administration Ferrous Gluconate 324 mg 10/26/19 08:00 10/29/19 08:31 Fergon PO 324 mg BID-WM RONAK Administration Gabapentin 300 mg 10/25/19 21:00 10/28/19 20:57 Neurontin PO 300 mg HS RONAK Administration Iron/Minerals/Multivitamins 1 tab 10/26/19 09:00 10/29/19 08:32 Theragran M PO 1 tab DAILY RONAK Administration Isosorbide Mononitrate 60 mg 10/26/19 09:00 10/29/19 08:32 Imdur PO 60 mg QAM RONAK Administration Pantoprazole Sodium 40 mg 10/26/19 09:00 10/29/19 08:32 Protonix PO 40 mg DAILY RONAK Administration Potassium Chloride 20 meq 10/26/19 08:00 10/28/19 08:49 K-Dur PO 20 meq QAM-WM RONAK Administration Senna/Docusate Sodium 2 tab 10/26/19 09:00 10/29/19 08:31 Senokot S PO 2 tab BID RONAK Administration Tramadol HCl 50 mg 10/25/19 12:15 10/26/19 06:08 Ultram PO 50 mg Q6H PRN Administration Mild Pain 1-3 Tramadol HCl 100 mg 10/25/19 12:15 10/29/19 06:40 Ultram PO 100 mg Q6H PRN Administration Moderate Pain 4-6 - Exam General Appearance: NAD Neck: supple, no JVD Heart: no gallops, no rubs Respiratory: CTAB, no rales Gastrointestinal: non-tender, normal bowel sounds Extremities: no cyanosis Hosp A/P - Plan Par Afib - on Multaq/Coreg - on Xarelto Obesity BMI 39.5 HTN CAD HLD GERD CKD 3 Hypomagnesemia - replaced PLAN: Cont Dronedarone Cont Carvedilol Cont PT/OT DC planning to Inpt Rehab when approved Cont other meds as above BMP after 1 week
[2019-10-29] MEDS: HYDROcodone/Acetaminophen 5/325 mg Tablet PO PRN (20:43)
[2019-10-29] MEDS: Atorvastatin Calcium 20 MG TAB PO SCH (20:44)
[2019-10-29] MEDS: Gabapentin 300 MG CAP PO SCH (20:44)
[2019-10-30] MEDS ORDERED: Labetalol HCl 100 MG/20 ML VIAL SLOW IVP PRN (07:42)
[2019-10-30] MEDS ORDERED: cloNIDine 0.1 MG TAB PO PRN (07:42)
--- NOTE | 2019-10-30 07:47 | PDOC.HOSPP ---
- Subjective Encounter Date: 10/30/19 Encounter Time: 13:00 Subjective: Patient seen and examined for med mngt. Had some delirium from norco last night. No new complaints. No overnight events - Objective Vital Signs & Weight: Vital Signs (12 hours) Temp Pulse Resp BP Pulse Ox 10/30/19 07:14 99.7 F H 80 16 182/80 H 95 10/30/19 03:19 99.4 F 78 16 133/60 93 L 10/29/19 23:23 99.2 F 81 16 147/66 H 92 L 10/29/19 20:00 94 L 10/29/19 19:47 99 F 81 16 150/62 H 94 L Weight Admit Weight 223 lb Weight 223 lb I&O: 10/29/19 10/30/19 10/31/19 06:59 06:59 06:59 Intake Total 2790 1950 Balance 2790 1950 Result Diagrams: 10/29/19 04:44 10/27/19 22:50 Hospitalist ROS - Review of Systems Respiratory: denies: cough, dry, shortness of breath, hemoptysis, SOB with excertion, pleuritic pain, sputum, wheezing, other Cardiovascular: denies: chest pain, palpitations, orthopnea, paroxysmal noc. dyspnea, edema, light headedness, other - Medication Medications: Active Medications Generic Name Dose Route Start Last Admin Trade Name Freq PRN Reason Stop Dose Admin Acetaminophen 1,000 mg 10/25/19 12:10 10/29/19 06:39 Tylenol PO 1,000 mg Q6H PRN Administration Headache/Fever or Pain Hydrocodone Bitart/Acetaminophen 2 tab 10/25/19 12:15 10/29/19 20:43 [place] 5/325 PO 2 tab Q4H PRN Administration For Moderate Pain 4-6 Aspirin 81 mg 10/26/19 09:00 10/29/19 08:32 Aspirin Chewable PO 81 mg DAILY RONAK Administration Atorvastatin Calcium 20 mg 10/25/19 21:00 10/29/19 20:44 Lipitor PO 20 mg HS RONAK Administration Calcium/Vitamin D 1 tab 10/26/19 09:00 10/29/19 08:32 Caltrate 600 + Vit D PO 1 tab DAILY RONAK Administration Carvedilol 3.125 mg 10/25/19 21:00 10/29/19 20:44 Coreg PO 3.125 mg BID RONAK Administration Diphenhydramine HCl 25 mg 10/25/19 12:15 10/26/19 10:03 Benadryl PO 25 mg Q3H PRN Administration Itching Dronedarone 400 mg 10/25/19 17:00 10/29/19 17:32 Multaq PO 400 mg BID-WM RONAK Administration Ferrous Gluconate 324 mg 10/26/19 08:00 10/29/19 17:32 Fergon PO 324 mg BID-WM RONAK Administration Gabapentin 300 mg 10/25/19 21:00 10/29/19 20:44 Neurontin PO 300 mg HS RONAK Administration Iron/Minerals/Multivitamins 1 tab 10/26/19 09:00 10/29/19 08:32 Theragran M PO 1 tab DAILY RONAK Administration Isosorbide Mononitrate 60 mg 10/26/19 09:00 10/29/19 08:32 Imdur PO 60 mg QAM RONAK Administration Pantoprazole Sodium 40 mg 10/26/19 09:00 10/29/19 08:32 Protonix PO 40 mg DAILY RONAK Administration Potassium Chloride 20 meq 10/26/19 08:00 10/28/19 08:49 K-Dur PO 20 meq QAM-WM RONAK Administration Senna/Docusate Sodium 2 tab 10/26/19 09:00 10/29/19 20:44 Senokot S PO 2 tab BID RONAK Administration Tramadol HCl 50 mg 10/25/19 12:15 10/26/19 06:08 Ultram PO 50 mg Q6H PRN Administration Mild Pain 1-3 Tramadol HCl 100 mg 10/25/19 12:15 10/29/19 06:40 Ultram PO 100 mg Q6H PRN Administration Moderate Pain 4-6 - Exam General Appearance: NAD Neck: supple, no JVD Heart: no gallops, no rubs Respiratory: no wheezes, no ronchi Gastrointestinal: non-tender, normal bowel sounds Extremities: no cyanosis, no clubbing Hosp A/P - Plan DVT proph w/SCDs Par Afib - on Multaq/Coreg - on Xarelto Obesity BMI 39.5 HTN CAD HLD GERD CKD 3 Hypomagnesemia - replaced PLAN: Cont Dronedarone/Carvedilol Xarelto started Rudolph dced DC planning to Inpt Rehab when approved Cont other meds as above CBC/BMP after 1 week Cont PT/OT
[2019-10-30] MEDS: Senokot S 8.6-50 MG TAB PO SCH ×3 (08:33→20:00)
[2019-10-30] MEDS: Ferrous Gluconate 324 MG TAB PO SCH ×2 (08:34→17:20)
[2019-10-30] MEDS: Carvedilol 3.125 MG TAB PO SCH ×2 (08:34→19:58)
[2019-10-30] MEDS: Calcium Carbonate 600 MG + Vit D TAB PO SCH (08:34)
[2019-10-30] MEDS: Aspirin Chewable 81 MG TAB PO SCH (08:34)
[2019-10-30] MEDS: Multivitamin W/ Minerals 1 TAB PO SCH (08:34)
[2019-10-30] MEDS: Dronedarone HCl 400 MG TAB PO SCH ×2 (08:34→17:20)
[2019-10-30] MEDS: traMADol HCl 50 MG TAB PO PRN ×2 (10:02→19:58)
[2019-10-30] MEDS: Rivaroxaban 10 MG TAB PO SCH (17:20)
[2019-10-30] MEDS: Gabapentin 300 MG CAP PO SCH (19:58)
[2019-10-30] MEDS: Atorvastatin Calcium 20 MG TAB PO SCH (19:58)
[2019-10-31] MEDS: Aspirin Chewable 81 MG TAB PO SCH (08:51)
[2019-10-31] MEDS: Calcium Carbonate 600 MG + Vit D TAB PO SCH (08:51)
[2019-10-31] MEDS: Dronedarone HCl 400 MG TAB PO SCH ×2 (08:51→19:48)
[2019-10-31] MEDS: Multivitamin W/ Minerals 1 TAB PO SCH (08:51)
[2019-10-31] MEDS: Senokot S 8.6-50 MG TAB PO SCH (08:51)
[2019-10-31] MEDS: Carvedilol 3.125 MG TAB PO SCH ×2 (08:51→20:35)
[2019-10-31] MEDS: Ferrous Gluconate 324 MG TAB PO SCH ×2 (08:51→19:52)
--- NOTE | 2019-10-31 10:50 | PDOC.HOSPP ---
- Subjective Encounter Date: 10/31/19 Encounter Time: 11:30 Subjective: Patient seen and examined for med mngt. Pain controlled. No CP/SOB or palpitations. No new complaints. No overnight events - Objective Vital Signs & Weight: Vital Signs (12 hours) Temp Pulse Resp BP Pulse Ox 10/31/19 07:25 98.4 F 71 16 130/71 95 10/31/19 03:20 99 F 74 16 152/63 H 94 L 10/30/19 23:24 98 F 76 16 137/64 96 Weight Admit Weight 223 lb Weight 223 lb I&O: 10/30/19 10/31/19 11/01/19 06:59 06:59 06:59 Intake Total 1950 500 Balance 1950 500 Result Diagrams: 10/29/19 04:44 10/31/19 11:39 Hospitalist ROS - Review of Systems Respiratory: denies: cough, dry, shortness of breath, hemoptysis, SOB with excertion, pleuritic pain, sputum, wheezing, other Cardiovascular: denies: chest pain, palpitations, orthopnea, paroxysmal noc. dyspnea, edema, light headedness, other - Medication Medications: Active Medications Generic Name Dose Route Start Last Admin Trade Name Freq PRN Reason Stop Dose Admin Acetaminophen 1,000 mg 10/25/19 12:10 10/29/19 06:39 Tylenol PO 1,000 mg Q6H PRN Administration Headache/Fever or Pain Aspirin 81 mg 10/26/19 09:00 10/31/19 08:51 Aspirin Chewable PO 81 mg DAILY RONAK Administration Atorvastatin Calcium 20 mg 10/25/19 21:00 10/30/19 19:58 Lipitor PO 20 mg HS RONAK Administration Calcium/Vitamin D 1 tab 10/26/19 09:00 10/31/19 08:51 Caltrate 600 + Vit D PO 1 tab DAILY RONAK Administration Carvedilol 3.125 mg 10/25/19 21:00 10/31/19 08:51 Coreg PO 3.125 mg BID RONAK Administration Clonidine 0.1 mg 10/30/19 07:42 10/30/19 08:35 Catapres PO 0.1 mg Q4H PRN Administration SBP Greater Than 180 Diphenhydramine HCl 25 mg 10/25/19 12:15 10/26/19 10:03 Benadryl PO 25 mg Q3H PRN Administration Itching Dronedarone 400 mg 10/25/19 17:00 10/31/19 08:51 Multaq PO 400 mg BID-WM RONAK Administration Ferrous Gluconate 324 mg 10/26/19 08:00 10/31/19 08:51 Fergon PO 324 mg BID-WM RONAK Administration Gabapentin 300 mg 10/25/19 21:00 10/30/19 19:58 Neurontin PO 300 mg HS RONAK Administration Iron/Minerals/Multivitamins 1 tab 10/26/19 09:00 10/31/19 08:51 Theragran M PO 1 tab DAILY RONAK Administration Isosorbide Mononitrate 60 mg 10/26/19 09:00 10/31/19 08:51 Imdur PO 60 mg QAM RONAK Administration Pantoprazole Sodium 40 mg 10/26/19 09:00 10/31/19 08:51 Protonix PO 40 mg DAILY RONAK Administration Potassium Chloride 20 meq 10/26/19 08:00 10/28/19 08:49 K-Dur PO 20 meq QAM-WM RONAK Administration Rivaroxaban 20 mg 10/30/19 18:00 10/30/19 17:20 Xarelto PO 20 mg 1800 RONAK Administration Senna/Docusate Sodium 2 tab 10/26/19 09:00 10/31/19 08:51 Senokot S PO 2 tab BID RONAK Administration Tramadol HCl 50 mg 10/25/19 12:15 10/26/19 06:08 Ultram PO 50 mg Q6H PRN Administration Mild Pain 1-3 Tramadol HCl 100 mg 10/25/19 12:15 10/30/19 19:58 Ultram PO 100 mg Q6H PRN Administration Moderate Pain 4-6 - Exam General Appearance: NAD Heart: RRR, no gallops Respiratory: no wheezes, no ronchi Gastrointestinal: non-tender, normal bowel sounds Extremities: no cyanosis Hosp A/P - Plan PT/OT Par Afib - on Multaq/Coreg - on Xarelto Obesity BMI 39.5 HTN CAD HLD GERD CKD 3 Hypomagnesemia Hyponatremia PLAN: Replace Magnesium Resume Potassium supp at dc Cont Dronedarone Cont Carvedilol On Anticoagulation DC planning to Inpt Rehab when accepted Cont other meds as above BMP after 1 week
[2019-10-31 12:25] LABS: Anion Gap 8 mmol/L (10-20); BUN (Urea Nitrogen) 11 mg/dL (9.8-20.1); Calc. Creatinine Clearance 92 mL/min (70-130); Calcium 9.2 mg/dL (7.8-10.44); Carbon Dioxide 29 mmol/L (23-31); Chloride 103 mmol/L (98-107); Estimated GFR-MDRD 74; Glucose 124 mg/dL (83-110); Magnesium 1.8 mg/dL (1.6-2.6); Potassium 4.4 mmol/L (3.5-5.1); Sodium 136 mmol/L (136-145)
[2019-10-31] MEDS ORDERED: Magnesium 2 GM/50 ML 2 GM in Premix Bag 1 BAG IVPB SCH (13:15)
[2019-10-31] MEDS: Rivaroxaban 10 MG TAB PO SCH (19:52)
[2019-10-31] MEDS: traMADol HCl 50 MG TAB PO PRN (20:33)
[2019-10-31] MEDS: Atorvastatin Calcium 20 MG TAB PO SCH (20:35)
[2019-10-31] MEDS: Gabapentin 300 MG CAP PO SCH (20:36)
[2019-10-31] MEDS: Magnesium Chloride 64 MG TAB PO SCH (20:59)
[2019-11-01] MEDS: Senokot S 8.6-50 MG TAB PO SCH ×3 (00:42→20:53)
[2019-11-01] MEDS: Carvedilol 3.125 MG TAB PO SCH ×2 (08:37→20:51)
[2019-11-01] MEDS: Aspirin Chewable 81 MG TAB PO SCH (08:37)
[2019-11-01] MEDS: Ferrous Gluconate 324 MG TAB PO SCH ×2 (08:37→17:21)
[2019-11-01] MEDS: Dronedarone HCl 400 MG TAB PO SCH ×2 (08:37→17:21)
[2019-11-01] MEDS: Magnesium Chloride 64 MG TAB PO SCH ×2 (08:37→20:51)
[2019-11-01] MEDS: Multivitamin W/ Minerals 1 TAB PO SCH (08:37)
[2019-11-01] MEDS: Calcium Carbonate 600 MG + Vit D TAB PO SCH (08:37)
[2019-11-01] MEDS: traMADol HCl 50 MG TAB PO PRN ×2 (12:07→20:52)
--- NOTE | 2019-11-01 12:20 | PRG ---
DATE OF SERVICE: 11/01/2019 SUBJECTIVE: The patient is doing well. She is day #7 in the hospital for her left hip replacement, the patient of Dr. Hopkins, and she is progressing. She is unable to go home. Her has some medical issues. Her family works. Therefore, as we talk, she needs to go to either rehab or nursing home facility. P.o. intake good. Mood is good and she feels she has been treated well. Spirits are high. OBJECTIVE: VITAL SIGNS: Stable, afebrile. GENERAL: Speech clear. Affect pleasant. Answers questions appropriately. She is alert and oriented x3. MUSCULOSKELETAL: Incision of left hip is a good-looking. Dressing clean, dry, intact. She is moving that left lower extremity fair, still struggling with some pain and fatigues quickly. Sensation is good. ASSESSMENT: Stable. PLAN: We will continue with current treatment regime. We will await Case Management getting her placement. Her questions and concerns have been addressed today. Job ID: [id number]
[2019-11-01] MEDS: Rivaroxaban 10 MG TAB PO SCH (17:21)
[2019-11-01] MEDS: Gabapentin 300 MG CAP PO SCH (20:51)
[2019-11-01] MEDS: Atorvastatin Calcium 20 MG TAB PO SCH (20:51)
[2019-11-01] MEDS: diphenhydrAMINE 25 MG CAP PO PRN (22:48)
[2019-11-02] MEDS: Magnesium Chloride 64 MG TAB PO SCH (08:18)
[2019-11-02] MEDS: Ferrous Gluconate 324 MG TAB PO SCH (08:18)
[2019-11-02] MEDS: Multivitamin W/ Minerals 1 TAB PO SCH (08:18)
[2019-11-02] MEDS: Aspirin Chewable 81 MG TAB PO SCH (08:19)
[2019-11-02] MEDS: Dronedarone HCl 400 MG TAB PO SCH (08:19)
[2019-11-02] MEDS: Carvedilol 3.125 MG TAB PO SCH (08:19)
[2019-11-02] MEDS: Senokot S 8.6-50 MG TAB PO SCH (08:19)
[2019-11-02] MEDS: Calcium Carbonate 600 MG + Vit D TAB PO SCH (08:19)
[2019-11-02] MEDS: traMADol HCl 50 MG TAB PO PRN (09:23)
[2019-11-02 11:16] VITALS: BP 155/71; TEMP 98.2
--- NOTE | 2019-11-03 12:34 | PQF ---
CLINICAL DOCUMENTATION CLARIFICATION FORM: Dear : Collin Sosa Date / Time: 11/03/2019 Please exercise your independent, professional judgment in responding to the clarification form. Clinical indicators are provided on the bottom of this form for your review Please check appropriate box(es): [ ] Sepsis [ x ] No sepsis [x ] Other diagnosis Post op fever - prob due to Atelectasis [ ] Unable to determine In addition, please specify: Present on Admission (POA): [ ] Yes [ ] No [ ] Unable to determine To be completed by CDI/Coding staff for physician review: Present Clinical Indicators - Signs / Symptoms / Labs Results and Location in Medical Record [ x ] Nurse called, febrile 101.4F, resistant to Tylenol. Give dose Tylenol now. Sepsis workup. ABX pending workup results Event note 10/26 by Obed Robles [ x ] WBC is 11.4 on 10/26 Laboratory [ x ] Temp is 100.7 F on 10/25 and 103.2 F on 10/26 Vital signs Present Risk Factors Results and Location in Medical Record [ x ] Total hip replacement surgery OP report 10/24 by Triston Hopkins MD [ x ] Patient is 84 years old Consult 10/24 by Obed Robles Present Treatments Results and Location in Medical Record [ x ] Sepsis work up initiated Event note 10/26 by Obed Robles [ x ] IV fluids 10/25-11/01 Medications [employer] Driver Signature: [email or web address] Phone #: Date/Time: 11/03/2019 This is a permanent part of the Medical Record [facility]
== END 2019-11-02 11:45 | DRG 470 ==
LOC: SURG A 10-25 06:51 → EDSTATUS 10-25 13:00 → SJJU 10-25 13:27 → EDSTATUS 11-01 13:00
PROVIDERS: ADMIT Orthopaedic Surgery; ATTEND Orthopaedic Surgery
PROC: 0SRB01A Replacement of Left Hip Joint with Metal Synthetic Substitute, Uncemented, Open Approach (ICD-10-PCS; principal; 2019-10-25)
DX: M16.12 Unilateral primary osteoarthritis, left hip (principal); D62 Acute posthemorrhagic anemia; E87.1 Hypo-osmolality and hyponatremia; J98.11 Atelectasis; I25.10 Atherosclerotic heart disease of native coronary artery without angina pectoris; I48.0 Paroxysmal atrial fibrillation; K21.9 Gastro-esophageal reflux disease without esophagitis; E78.5 Hyperlipidemia, unspecified; E83.42 Hypomagnesemia; E66.9 Obesity, unspecified; N18.3 Chronic kidney disease, stage 3 (moderate); I12.9 Hypertensive chronic kidney disease with stage 1 through stage 4 chronic kidney disease, or unspecified chronic kidney disease; Z79.01 Long term (current) use of anticoagulants; Z11.59 Encounter for screening for other viral diseases; Z68.39 Body mass index [BMI] 39.0-39.9, adult
CPT/HCPCS: 36415; 36430; 71045; 80048; 80053; 81001; 83605; 83735; 85025; 85027; 85610; 86850; 86900; 86901; 87040; 87081; 87086; 87635; C1776; J0360; J0690; J1100; J1650; J1885; J1940; J2001; J2250; J2405; J2704; J3010; J3370; J3475; J3490; P9016; Q0163; U0003

== ENCOUNTER 2019-10-21 05:41 | Outpatient (CLI) | payer MEDICARE, OTHER | END 2019-10-21 05:42 | disposition home or self-care (01) | LOC: LABBT 05:41 | PROVIDERS: ATTEND Orthopaedic Surgery | DX: Z01.818 Encounter for other preprocedural examination (principal); M16.12 Unilateral primary osteoarthritis, left hip | CPT/HCPCS: 93005; 93010 ==

== ENCOUNTER 2019-12-24 06:18 | Outpatient (CLI) | payer MEDICARE, OTHER ==
[2019-12-25 14:47] LABS: SARS-CoV-2 MS2 Positive; SARS-CoV-2 N Gene Negative; SARS-CoV-2 S Gene Negative; SARS-CoV-2 by NAA Not Detected (NotDetected); SARS-CoV-2 orf1ab Negative
== END 2019-12-24 06:19 | disposition home or self-care (01) ==
LOC: LABBT 06:18
PROVIDERS: ATTEND Internal Medicine Cardiovascular Disease
DX: I48.91 Unspecified atrial fibrillation (principal); Z20.828 Contact with and (suspected) exposure to other viral communicable diseases
CPT/HCPCS: 87635; U0003

== ENCOUNTER 2019-12-27 10:00 | Day surgery (SDC) | payer MEDICARE ==
[2019-12-24 09:19] VITALS: BMI 35.4
[2019-12-27] MEDS ORDERED: PROPOFOL 200 MG/20 ML VIAL ONE (12:37)
[2019-12-27] MEDS ORDERED: Ketamine 50 MG/ML (10ML VIAL) ONE (13:02)
--- NOTE | 2019-12-28 10:13 | OP ---
DATE OF PROCEDURE: 12/27/2019 PREPROCEDURE DIAGNOSIS: Atrial fibrillation. POSTPROCEDURE DIAGNOSIS: Sinus rhythm. PROCEDURE: Synchronized cardioversion. DESCRIPTION OF PROCEDURE: Ms. Stewart was scheduled for a synchronized cardioversion. She underwent sedation with propofol. Synchronized cardioversion performed successfully at 150 joules. IMPRESSION: Successful synchronized cardioversion. Job ID: [id number]
--- NOTE | 2020-01-02 12:46 | EKG ---
Test Reason : POST CARDIOVERSION Blood Pressure : / mmHG Vent. Rate : 054 BPM Atrial Rate : 054 BPM P-R Int : 250 ms QRS Dur : 090 ms QT Int : 474 ms P-R-T Axes : 062 057 056 degrees QTc Int : 449 ms Sinus bradycardia with 1st degree A-V block Otherwise normal ECG No previous ECGs available Confirmed by ISIS MATIAS MD ([id number]) on 01/02/2020 12:45:38 PM Referred By: POLLY Confirmed By:ISIS MATIAS MD
== END 2019-12-27 14:33 | disposition home or self-care (01) ==
LOC: CCL 10:00
PROVIDERS: ATTEND Internal Medicine Cardiovascular Disease
PROC: 5A2204Z Restoration of Cardiac Rhythm, Single (ICD-10-PCS; principal; 2019-12-27)
DX: I48.0 Paroxysmal atrial fibrillation (principal); I25.10 Atherosclerotic heart disease of native coronary artery without angina pectoris; I12.9 Hypertensive chronic kidney disease with stage 1 through stage 4 chronic kidney disease, or unspecified chronic kidney disease; N18.9 Chronic kidney disease, unspecified; E78.5 Hyperlipidemia, unspecified; G47.30 Sleep apnea, unspecified; Z79.82 Long term (current) use of aspirin; Z79.899 Other long term (current) drug therapy; Z85.038 Personal history of other malignant neoplasm of large intestine; Z88.5 Allergy status to narcotic agent; Z88.8 Allergy status to other drugs, medicaments and biological substances
CPT/HCPCS: 92960; 93005; 93010; J2704

== ENCOUNTER 2020-08-10 11:36 | Inpatient (IN) | payer MEDICARE ==
[2020-08-10 13:07] LABS: #Eosinphils 0.1 thou/uL (0.0-0.7); #Lymphocytes 1.3 thou/uL (1.20-3.40); #Monocytes 0.6 thou/uL (0.11-0.59); #Neutrophils 3.7 thou/uL (1.40-6.50); %Basophils 0.7 % (0.0-1.0); %Eosinophils 1.6 % (0.0-10.0); %Lymphocytes 22.3 % (21.0-51.0); %Monocytes 9.7 % (0.0-10.0); %Neutrophils 65.7 % (42.0-75.0); Hemoglobin 7.5 g/dL (12.0-16.0); Mean Corpuscular HGB CONC 30.1 g/dL (32.0-36.0); Mean Corpuscular Hemoglobin 20.4 pg (27.0-31.0); Mean Corpuscular Volume 67.9 fL (78.0-98.0); Mean Platelet Volume 10.2 fL (7.4-10.4); Platelet Count 250 thou/uL (130-400); Red Blood Cell (RBC) Count 3.66 mill/uL (4.20-5.40); White Blood Cell (WBC) Count 5.7 thou/uL (4.8-10.8)
[2020-08-10 13:11] LABS: INR-International Normal Ratio 1.2; PTT 32.7 sec (22.9-36.1); Prothrombin Time 15.6 sec (12.0-14.7)
[2020-08-10 13:28] LABS: ALT (SGPT) 8 U/L (8-55); AST (SGOT) 13 U/L (5-34); Albumin 3.6 g/dL (3.4-4.8); Alkaline Phosphatase 50 U/L (40-110); Anion Gap 11 mmol/L (10-20); BUN (Urea Nitrogen) 15 mg/dL (9.8-20.1); Bilirubin, Total 0.8 mg/dL (0.2-1.2); Calc. Creatinine Clearance 0 mL/min (70-130); Carbon Dioxide 28 mmol/L (23-31); Chloride 106 mmol/L (98-107); Globulin 2.4 g/dL (2.4-3.5); Glucose 98 mg/dL (83-110); Lipase 19 U/L (8-78); Potassium 3.8 mmol/L (3.5-5.1); Sodium 141 mmol/L (136-145)
[2020-08-10] MEDS ORDERED: Acetaminophen 325 MG TAB PO PRN (14:23)
[2020-08-10] MEDS ORDERED: Ondansetron PF 4 MG/2 ML Vial IVP PRN (14:23)
[2020-08-10 15:27] LABS: Iron 13 ug/dL (50-170); Iron Binding Capacity, Total 406 mcg/dL (265-497)
[2020-08-10] MEDS ORDERED: GoLYTELY 4,000 ml Bottle PO SCH (16:15)
[2020-08-10 16:52] VITALS: BMI 37.5
[2020-08-10 20:09] LABS: Hemoglobin 7.3 g/dL (12.0-16.0)
[2020-08-10 20:48] LABS: SARS-CoV-2 PCR by NAA Not Detected (NotDetected)
[2020-08-10] MEDS ORDERED: traMADol HCl 50 MG TAB PO PRN (22:25)
[2020-08-10] MEDS ORDERED: Carvedilol 3.125 MG TAB PO SCH (23:45)
[2020-08-11] MEDS ORDERED: Carvedilol 6.25 MG TAB PO SCH (00:15)
[2020-08-11] MEDS: Levothyroxine Sodium 50 MCG TAB PO SCH (05:24)
[2020-08-11] MEDS: Carvedilol 3.125 MG TAB PO SCH ×2 (08:49→20:49)
[2020-08-11] MEDS: Lisinopril 20 MG TAB PO SCH (08:51)
[2020-08-11] MEDS: Aspirin Chewable 81 MG TAB PO SCH ×2 (08:51→16:55)
[2020-08-11] MEDS: Dronedarone HCl 400 MG TAB PO SCH ×2 (08:52→16:55)
[2020-08-11] MEDS: Hydrochlorothiazide 25 MG TAB PO SCH (08:52)
[2020-08-11] MEDS: Calcium Carbonate 600 MG + Vit D TAB PO SCH ×2 (08:53→16:55)
[2020-08-11] MEDS: Potassium Chloride 20 MEQ TAB PO SCH ×2 (08:54→16:55)
[2020-08-11] MEDS ORDERED: Pantoprazole 40 MG VIAL IVP SCH (09:00)
[2020-08-11] MEDS ORDERED: Calcium Carbonate 600 MG + Vit D TAB PO SCH (09:00)
[2020-08-11 09:05] LABS: #Eosinphils 0.1 thou/uL (0.0-0.7); #Monocytes 0.5 thou/uL (0.11-0.59); #Neutrophils 4.1 thou/uL (1.40-6.50); %Eosinophils 1.2 % (0.0-10.0); %Monocytes 9.3 % (0.0-10.0); %Neutrophils 72.5 % (42.0-75.0); Hemoglobin 8.4 g/dL (12.0-16.0); Mean Corpuscular HGB CONC 30.5 g/dL (32.0-36.0); Mean Corpuscular Hemoglobin 21.3 pg (27.0-31.0); Mean Corpuscular Volume 69.8 fL (78.0-98.0); Platelet Count 225 thou/uL (130-400); RBC Distribution Width 17.1 % (11.5-14.5); Red Blood Cell (RBC) Count 3.92 mill/uL (4.20-5.40); White Blood Cell (WBC) Count 5.6 thou/uL (4.8-10.8)
[2020-08-11 09:28] LABS: Anion Gap 11 mmol/L (10-20); BUN (Urea Nitrogen) 10 mg/dL (9.8-20.1); Calc. Creatinine Clearance 69 mL/min (70-130); Calcium 9.8 mg/dL (7.8-10.44); Carbon Dioxide 27 mmol/L (23-31); Chloride 107 mmol/L (98-107); Glucose 86 mg/dL (83-110); Potassium 3.6 mmol/L (3.5-5.1); Sodium 141 mmol/L (136-145)
[2020-08-11] MEDS ORDERED: PROPOFOL 200 MG/20 ML VIAL ONE (12:33)
[2020-08-11] MEDS ORDERED: Ondansetron HCl/PF 4 MG/2 ML Vial IVP PRN (13:06)
[2020-08-11] MEDS ORDERED: Hydrocortisone Acetate 25 MG Suppository PR PRN (13:09)
[2020-08-11] MEDS ORDERED: Iron, Sodium Ferric Gluconate 250 MG in Sodium Chloride 0.9% 250 ML 250 ML IVPB SCH (13:15)
[2020-08-11 14:24] LABS: Hemoglobin 8.4 g/dL (12.0-16.0)
[2020-08-11] MEDS: Gabapentin 300 MG CAP PO SCH (20:50)
[2020-08-11] MEDS: Simvastatin 40 MG TAB PO SCH (20:51)
[2020-08-12 04:34] LABS: Anion Gap 10 mmol/L (10-20); BUN (Urea Nitrogen) 9 mg/dL (9.8-20.1); Calc. Creatinine Clearance 71 mL/min (70-130); Calcium 10.8 mg/dL (7.8-10.44); Carbon Dioxide 26 mmol/L (23-31); Chloride 109 mmol/L (98-107); Glucose 86 mg/dL (83-110); Potassium 3.6 mmol/L (3.5-5.1); Sodium 141 mmol/L (136-145)
[2020-08-12] MEDS: Levothyroxine Sodium 50 MCG TAB PO SCH (05:14)
[2020-08-12 05:43] LABS: #Eosinphils 0.2 thou/uL (0.0-0.7); #Lymphocytes 1.2 thou/uL (1.20-3.40); #Monocytes 0.7 thou/uL (0.11-0.59); #Neutrophils 4.2 thou/uL (1.40-6.50); %Basophils 0.7 % (0.0-1.0); %Eosinophils 3.1 % (0.0-10.0); %Lymphocytes 19.1 % (21.0-51.0); %Monocytes 10.9 % (0.0-10.0); %Neutrophils 66.3 % (42.0-75.0); Hemoglobin 7.5 g/dL (12.0-16.0); Hypochromia SLIGHT = 6-15 cells (100X) (0-5/hpf); MDiff Complete? YES; Mean Corpuscular HGB CONC 29.2 g/dL (32.0-36.0); Mean Corpuscular Hemoglobin 20.4 pg (27.0-31.0); Mean Corpuscular Volume 69.9 fL (78.0-98.0); Mean Platelet Volume 10.5 fL (7.4-10.4); Microcytosis SLIGHT = 6-15 cells (100X) (0-5/hpf); Platelet Count 217 thou/uL (130-400); RBC Distribution Width 17.3 % (11.5-14.5); Red Blood Cell (RBC) Count 3.67 mill/uL (4.20-5.40); White Blood Cell (WBC) Count 6.4 thou/uL (4.8-10.8)
[2020-08-12] MEDS: Carvedilol 3.125 MG TAB PO SCH ×2 (08:54→21:30)
[2020-08-12] MEDS: Hydrochlorothiazide 25 MG TAB PO SCH (08:54)
[2020-08-12] MEDS: Aspirin Chewable 81 MG TAB PO SCH (08:54)
[2020-08-12] MEDS: Calcium Carbonate 600 MG + Vit D TAB PO SCH (08:54)
[2020-08-12] MEDS: Dronedarone HCl 400 MG TAB PO SCH ×2 (08:54→16:43)
[2020-08-12] MEDS: Potassium Chloride 20 MEQ TAB PO SCH (08:55)
[2020-08-12] MEDS: Lisinopril 20 MG TAB PO SCH (08:55)
[2020-08-12] MEDS: Gabapentin 300 MG CAP PO SCH (21:29)
[2020-08-12] MEDS: Simvastatin 40 MG TAB PO SCH (21:30)
[2020-08-13 04:47] LABS: #Eosinphils 0.3 thou/uL (0.0-0.7); #Lymphocytes 1.5 thou/uL (1.20-3.40); #Monocytes 0.7 thou/uL (0.11-0.59); %Basophils 0.3 % (0.0-1.0); %Eosinophils 4.4 % (0.0-10.0); %Lymphocytes 20.1 % (21.0-51.0); %Neutrophils 66.2 % (42.0-75.0); Hemoglobin 8.8 g/dL (12.0-16.0); Mean Corpuscular HGB CONC 30.5 g/dL (32.0-36.0); Mean Corpuscular Hemoglobin 21.7 pg (27.0-31.0); Mean Corpuscular Volume 71.1 fL (78.0-98.0); Mean Platelet Volume 10.7 fL (7.4-10.4); Platelet Count 185 thou/uL (130-400); Red Blood Cell (RBC) Count 4.05 mill/uL (4.20-5.40); White Blood Cell (WBC) Count 7.5 thou/uL (4.8-10.8)
[2020-08-13 05:01] LABS: Anion Gap 12 mmol/L (10-20); BUN (Urea Nitrogen) 8 mg/dL (9.8-20.1); Calc. Creatinine Clearance 71 mL/min (70-130); Calcium 10.5 mg/dL (7.8-10.44); Carbon Dioxide 23 mmol/L (23-31); Chloride 108 mmol/L (98-107); Glucose 85 mg/dL (83-110); Sodium 139 mmol/L (136-145)
[2020-08-13] MEDS: Levothyroxine Sodium 50 MCG TAB PO SCH (05:24)
[2020-08-13] MEDS: Carvedilol 3.125 MG TAB PO SCH (08:57)
[2020-08-13] MEDS: Lisinopril 20 MG TAB PO SCH (08:59)
[2020-08-13] MEDS: Hydrochlorothiazide 25 MG TAB PO SCH (08:59)
[2020-08-13] MEDS: Aspirin Chewable 81 MG TAB PO SCH (08:59)
[2020-08-13] MEDS: Dronedarone HCl 400 MG TAB PO SCH (08:59)
[2020-08-13] MEDS: Calcium Carbonate 600 MG + Vit D TAB PO SCH (08:59)
[2020-08-13] MEDS: Potassium Chloride 20 MEQ TAB PO SCH (09:00)
[2020-08-13 12:00] VITALS: BP 146/58; TEMP 98.6
== END 2020-08-13 13:30 | disposition home or self-care (01) | DRG 813 ==
LOC: ERS 11:36 → ERHOLD 13:51 → 2NO 16:19 → OBSVTOIN 19:39
PROVIDERS: ADMIT Internal Medicine; ATTEND Internal Medicine
PROC: 0DJ08ZZ Inspection of Upper Intestinal Tract, Via Natural or Artificial Opening Endoscopic (ICD-10-PCS; principal; 2020-08-11)
PROC: 0DJD8ZZ Inspection of Lower Intestinal Tract, Via Natural or Artificial Opening Endoscopic (ICD-10-PCS; 2020-08-11)
PROC: 30233N1 Transfusion of Nonautologous Red Blood Cells into Peripheral Vein, Percutaneous Approach (ICD-10-PCS; 2020-08-11)
DX: D68.32 Hemorrhagic disorder due to extrinsic circulating anticoagulants (principal); I50.32 Chronic diastolic (congestive) heart failure; N17.9 Acute kidney failure, unspecified; D62 Acute posthemorrhagic anemia; K91.840 Postprocedural hemorrhage of a digestive system organ or structure following a digestive system procedure; I11.0 Hypertensive heart disease with heart failure; I48.0 Paroxysmal atrial fibrillation; E03.9 Hypothyroidism, unspecified; K22.70 Barrett's esophagus without dysplasia; E66.9 Obesity, unspecified; K64.8 Other hemorrhoids; K21.9 Gastro-esophageal reflux disease without esophagitis; D50.9 Iron deficiency anemia, unspecified; K57.30 Diverticulosis of large intestine without perforation or abscess without bleeding; K44.9 Diaphragmatic hernia without obstruction or gangrene; Z20.822 Contact with and (suspected) exposure to COVID-19; Z96.652 Presence of left artificial knee joint; Y83.8 Other surgical procedures as the cause of abnormal reaction of the patient, or of later complication, without mention of misadventure at the time of the procedure; Z96.649 Presence of unspecified artificial hip joint; Z85.038 Personal history of other malignant neoplasm of large intestine; Z90.49 Acquired absence of other specified parts of digestive tract; Z88.5 Allergy status to narcotic agent; Z88.8 Allergy status to other drugs, medicaments and biological substances; Z79.82 Long term (current) use of aspirin; Z79.899 Other long term (current) drug therapy; Z90.710 Acquired absence of both cervix and uterus; Z87.891 Personal history of nicotine dependence; Z68.38 Body mass index [BMI] 38.0-38.9, adult
CPT/HCPCS: 36415; 36430; 80048; 80053; 82728; 83540; 83550; 83690; 85025; 85060; 85610; 85730; 86850; 86900; 86901; 87635; 94760; C9113; G0378; J2704; J2916; J7050; P9016; U0003; U0005

== ENCOUNTER 2020-11-22 11:00 | Outpatient (CLI) | payer MEDICARE | END 2020-11-22 11:01 | disposition home or self-care (01) | LOC: BICMAMMO 11:00 | PROVIDERS: ATTEND Family Medicine | DX: Z13.820 Encounter for screening for osteoporosis (principal); Z78.0 Asymptomatic menopausal state; M85.851 Other specified disorders of bone density and structure, right thigh | CPT/HCPCS: 77080 ==

== ENCOUNTER 2021-09-13 13:38 | Outpatient (CLI) | payer MEDICARE | END 2021-09-13 13:39 | disposition home or self-care (01) | LOC: LABBT 13:38 | PROVIDERS: ATTEND Internal Medicine Cardiovascular Disease | DX: I48.0 Paroxysmal atrial fibrillation (principal); Z20.822 Contact with and (suspected) exposure to COVID-19 | CPT/HCPCS: U0003; U0005 ==

== ENCOUNTER 2021-09-17 06:02 | Day surgery (SDC) | payer MEDICARE ==
[2021-09-13 10:13] VITALS: BMI 38.9
[2021-09-17] MEDS ORDERED: PROPOFOL 20 ML ONE (08:18)
== END 2021-09-17 09:40 | disposition home or self-care (01) ==
LOC: SDC 06:02
PROVIDERS: ATTEND Internal Medicine Cardiovascular Disease
PROC: 5A2204Z Restoration of Cardiac Rhythm, Single (ICD-10-PCS; principal; 2021-09-17)
DX: I48.19 Other persistent atrial fibrillation (principal); I25.10 Atherosclerotic heart disease of native coronary artery without angina pectoris; I12.9 Hypertensive chronic kidney disease with stage 1 through stage 4 chronic kidney disease, or unspecified chronic kidney disease; N18.9 Chronic kidney disease, unspecified; D63.1 Anemia in chronic kidney disease; I35.1 Nonrheumatic aortic (valve) insufficiency; E78.5 Hyperlipidemia, unspecified; G47.33 Obstructive sleep apnea (adult) (pediatric); M15.9 Polyosteoarthritis, unspecified; Z85.038 Personal history of other malignant neoplasm of large intestine; Z79.01 Long term (current) use of anticoagulants; Z79.82 Long term (current) use of aspirin; Z79.890 Hormone replacement therapy; Z79.899 Other long term (current) drug therapy; Z88.5 Allergy status to narcotic agent; Z88.8 Allergy status to other drugs, medicaments and biological substances
CPT/HCPCS: 92960; 93005; 93010; J2704

== ENCOUNTER 2023-01-17 10:18 | Outpatient (CLI) | payer MEDICARE | END 2023-01-17 10:19 | disposition home or self-care (01) | LOC: BICMAMMO 10:18 | PROVIDERS: ATTEND Family Medicine | DX: Z13.820 Encounter for screening for osteoporosis (principal); M85.88 Other specified disorders of bone density and structure, other site; Z78.0 Asymptomatic menopausal state | CPT/HCPCS: 77080 ==

== ENCOUNTER 2023-04-08 12:51 | Outpatient (CLI) | payer MEDICARE | END 2023-04-08 12:52 | disposition home or self-care (01) | LOC: SCSRAD 12:51 | PROVIDERS: ATTEND Family Medicine | DX: S29.9XXA Unspecified injury of thorax, initial encounter (principal) ==

== ENCOUNTER 2024-01-14 12:30 | Outpatient (CLI) | payer MEDICARE ==
[2024-01-14 13:27] LABS: #Basophils Less than 0.03 10x3/uL (0.0-0.2); %Basophils 0.4 % (0.0-1.0); %Eosinophils 1.8 % (0.0-10.0); %Monocytes 8.4 % (0.0-10.0); %Neutrophils 67.2 % (42.0-75.0); Hematocrit 44.5 % (36.0-47.0); Hemoglobin 14.3 g/dL (12.0-16.0); Mean Corpuscular HGB CONC 32.1 g/dL (32.0-36.0); Mean Corpuscular Hemoglobin 29.5 pg (27.0-31.0); Mean Corpuscular Volume 91.9 fL (78.0-98.0); Mean Platelet Volume 11.3 fL (7.4-10.4); Platelet Count 145 10x3/uL (130-400); RBC Distribution Width 13.6 % (11.5-14.5); Red Blood Cell (RBC) Count 4.84 mill/uL (4.20-5.40)
[2024-01-14 13:46] LABS: ALT (SGPT) 10 U/L (8-55); AST (SGOT) 14 U/L (5-34); Albumin 3.7 g/dL (3.4-4.8); Alkaline Phosphatase 77 U/L (40-110); Anion Gap 14 mmol/L (10-20); BUN (Urea Nitrogen) 11 mg/dL (9.8-20.1); Bilirubin, Total 1.2 mg/dL (0.2-1.2); Calc. Creatinine Clearance 0 mL/min (70-130); Calcium 10.3 mg/dL (7.8-10.44); Carbon Dioxide 30 mmol/L (23-31); Chloride 108 mmol/L (98-107); Estimated GFR 49; Globulin 3.1 g/dL (2.4-3.5); Glucose 96 mg/dL (83-110); Potassium 3.9 mmol/L (3.5-5.1); Protein, Total 6.8 g/dL (5.8-8.1); Sodium 148 mmol/L (136-145)
== END 2024-01-14 12:31 | disposition home or self-care (01) ==
LOC: LABBT 12:30
PROVIDERS: ATTEND Internal Medicine Cardiovascular Disease
DX: Z01.812 Encounter for preprocedural laboratory examination (principal)
CPT/HCPCS: 85025

== ENCOUNTER → 2024-01-20 | Day surgery (SDC) | payer MEDICARE ==
[2024-01-14 12:43] VITALS: BMI 38.4
[~2024-01-20] MED LIST: Adenosine 6 mg (2 mL) VIAL ONE; Diazepam 5 MG TAB ONE; Heparin 10,000 UNITS/ 10 ML VIAL ONE; Iopamidol 370 76% 100 ML VIAL ONE; Nitroglycerin 50 MG/250 ML BOT 250 ML ONE; Protamine Sulfate 50 MG/5 ML VIAL ONE; Verapamil 5 MG/2 ML VIAL ONE
== END ==
LOC: SDC 05:30
PROVIDERS: ATTEND Internal Medicine Cardiovascular Disease
PROC: 4A023N7 Measurement of Cardiac Sampling and Pressure, Left Heart, Percutaneous Approach (ICD-10-PCS; principal; 2024-01-20)
DX: I25.10 Atherosclerotic heart disease of native coronary artery without angina pectoris (principal); I10 Essential (primary) hypertension; I48.91 Unspecified atrial fibrillation; E78.5 Hyperlipidemia, unspecified; Z79.82 Long term (current) use of aspirin; Z79.01 Long term (current) use of anticoagulants; Z79.899 Other long term (current) drug therapy
CPT/HCPCS: 93458; 93799; C1769 ×3; C1894; J1644; J2720; Q9967; J0153

== ENCOUNTER 2024-11-04 14:48 | Outpatient (CLI) | payer MEDICARE | END 2024-11-04 14:49 | disposition home or self-care (01) | LOC: RAD 14:48 | PROVIDERS: ATTEND Internal Medicine | DX: R06.00 Dyspnea, unspecified (principal) | CPT/HCPCS: 71046 ==